=== PATIENT | female | born 1950 | race Caucasian/White ===

== ENCOUNTER 2020-10-17 15:00 | Inpatient (IN) | payer MEDICARE, SELFPAY ==
[2020-10-17] VITALS (12 sets, daily range): BP systolic 111–146; BP diastolic 70–87; PULSE 105–127; RESP 16–18; TEMP 36.4; O2SAT 96–99; BMI 21.2
--- NOTE | ~2020-10-17 | CT_ITS ---
EXAMINATION: CT abdomen pelvis w con DATE: 10/18/2020 09:07 INDICATION: GI bleed TECHNIQUE: Computed tomography (CT) of the abdomen and pelvis was performed with 100 cc Omnipaque 350 intravenous contrast. The dose-length product was 179.67 mGy-cm. Automated exposure control and iter ative reconstruction technique were employed. COMPARISON: None. FINDINGS: There is emphysema in the lung bases. There is scoliosis. Heart size normal. No significant pleural or pericardial effusion. Moderate atherosclerosis of the aorta without aneurysm. No lymphade nopathy. There is a 1 cm liver cyst. The spleen contains calcifications, consistent with chronic granulomatous disease. There are gallstones. There is mild dilation of the common bile duct measuring 1 cm, althou gh no obstructing stone or mass is identified. There is minimal prominence of the pancreatic duct. Th e adrenal glands and kidneys are unremarkable. Nonobstructive bowel gas pattern. Bladder wall is mild ly prominent, although not well distended. No focal bowel abnormalities are identified. No obstructio n. No free air or free fluid. Moderate osteoarthritis of the hips. There is scoliosis. IMPRESSION: 1. Mildly dilated common bile duct measuring 1 cm, although no obstructing stone or mass identified. 2: Cholelithiasis. 3: Emphysema. Reviewed, dictated and finalized at location A. IMPRESSION: 1. Mildly dilated common bile duct measuring 1 cm, although no obstructing ston e or mass identified. 2: Cholelithiasis. 3: Emphysema.
--- NOTE | 2020-10-17 15:03 | ED.GIBLEED ---
HPI - GI Bleed General Chief complaint: GI Bleed Stated complaint: VOMITING BLOOD, DARK STOOLS XTD Time Seen by Provider: 10/17/20 15:03 History of Present Illness HPI Narrative: 69 yo female w/ h/o a-fib on eliquis, PUD presents to the ED for a GI bleed. She reports 2 episodes of bloody emesis starting at about 0600 today. She has also had multiple dark stools. She has felt progressively weak and dizzy as the day goes on. She says that she has had an ulcer in the past, but no problems recently. No h/o GI bleed. No abdominal pain, chest pain, syncope, fever. Related Data Home Medications Medication Instructions Recorded Confirmed alendronate 70 mg PO DAILY 10/17/20 10/17/20 apixaban [Eliquis] 5 mg PO BID 10/17/20 10/17/20 atorvastatin 40 mg PO DAILY 10/17/20 10/17/20 baclofen 10 mg PO HS 10/17/20 10/17/20 citalopram 40 mg PO DAILY 10/17/20 10/17/20 ergocalciferol (vitamin D2) 50,000 unit PO MONTHLY 10/17/20 10/17/20 gabapentin 300 mg PO TID 10/17/20 10/17/20 metoprolol succinate 100 mg PO DAILY 10/17/20 10/17/20 Allergies Allergy/AdvReac Type Severity Reaction Status Date / Time ranitidine Allergy Mild Unknown Verified 10/17/20 18:08 Review of Systems Review of Systems: All systems reviewed & are unremarkable except as noted in HPI and below Constitutional: Constitutional: Denies chills, Denies fever(s) and Reports weakness Eyes: Eyes: Reports no additional eye complaints Cardiovascular: Cardiovascular: Denies chest pain Respiratory: Respiratory: Denies dyspnea Gastrointestinal: Gastrointestinal: Reports as per HPI Genitourinary: Genitourinary: Denies hematuria Musculoskeletal: Musculoskeletal: Denies back pain Neurologic: Reports dizziness and Reports weakness Hematologic/Lymphatic: Hematologic/Lymphatic: Reports easy bleeding PMFSH Past Medical History Medical History (Updated 10/17/20 @ 19:04 by Alon Cole MD) Atrial fibrillation Social History Social History Smoking status: Heavy tobacco smoker Substance use: former Substance use type: does not use Gender identity (if verbalized by the patient): Female Sexual Orientation (if Verbalized by the Patient): Straight or Heterosexual Spiritual care concerns: No Exam Const: General: no acute distress, alert and ill appearing Nutritional Appearance: thin Orientation/consciousness: patient oriented x3 HENMT: Head: normal to inspection Mouth: Yes dry mucous membranes Neck: Neck: normal visual inspection Resp: Effort & Inspection: normal respiratory effort Cardio: Rate: tachycardic Rhythm: regular rhythm GI: GI Palp: Yes Soft to palpation and No Tenderness to palpation present (GI) Skin: General skin exam: pallor Neuro: General: patient oriented x3, moves all extremities, no focal motor deficits and CN's II-XI intact bilaterally Speech: normal speech Gait exam (Neuro): Normal gait present Extrem: General: normal to inspection Psych: Appearance: grossly normal and well kempt Mental Status: mental status grossly normal Affect: normal affect Attitude: cooperative Course Vital Signs Vital signs: Vital Signs Temperature 36.4 C L 10/17/20 15:05 Pulse Rate 116 H 10/17/20 15:05 Respiratory Rate 18 10/17/20 15:05 Blood Pressure 111/72 10/17/20 15:05 Pulse Oximetry 99 10/17/20 15:05 Temperature 36.4 C L 10/17/20 15:05 Pulse Rate 105 H 10/17/20 17:35 Respiratory Rate 18 10/17/20 17:17 Blood Pressure 128/73 10/17/20 17:17 Pulse Oximetry 96 10/17/20 17:45 MDM - GI Bleed MDM Narrative Medical decision making narrative: H/H stable. mildly tachycardic. No indication for emergent reversal of coagulopathy. Given protonix and TXA Dr. Galarza will consult. Differential Diagnosis Differential diagnosis: Likely gastritis, Libra-Hunt syndrome, Upper gastrointestinal hemorrhage and other (PUD) Medical Records Attestation: I reviewed the patient's medical records. Lab Data Attest
[2020-10-17 15:38] LABS: Basophils Percent Auto 0.2 % (0.2-1.2); Eosinophils Percent Auto 0.1 % (0-4.4); Hematocrit 40.7 % (37.0-47.0); Hemoglobin 13.2 g/dL (12.0-15.0); Immature Granulocyte Absolute 0.04 K/mm3 (0.00-0.031); Immature Granulocyte Percent A 0.5 % (0-0.5); Mean Corpuscular HGB Conc 32.4 g/dl (32-36); Mean Corpuscular Volume 98.8 fl (80-100); Mean Platelet Volume 9.6 fl (7.4-10.4); Monocytes Absolute Auto 0.5 K/mm3 (0.1-0.6); Monocytes Percent Auto 5.3 % (2.6-8.5); Neutrophils Absolute Auto 6.8 K/mm3 (1.3-6.7); Neutrophils Percent Auto 76.9 % (45.5-73.1); Platelet Count Result 241 k/mm3 (150-375); Red Blood Count 4.12 M/mm3 (4.2-5.4); Red Cell Distribution Width 12.8 % (11.5-14.5); White Blood Count 8.8 K/mm3 (4.5-10.0)
[2020-10-17] MEDS: PANTOPRAZOLE SODIUM IV 40 MG VIAL 80 MG IV PUSH (15:47)
[2020-10-17] MEDS: SODIUM CHLORIDE 0.9% IV 1,000 ML 999 ML IV CONT (15:47)
[2020-10-17] MEDS: TRANEXAMIC ACID 1,000 MG/10 ML AMPUL 1000 MG IV PUSH (15:47)
[2020-10-17 15:48] LABS: Alanine Aminotransferase 15 U/L (4-35); Albumin Level 4.1 g/dL (3.5-5.1); Alkaline Phosphatase 64 U/L (38-126); Anion Gap 6 mmol/L (8-16); Aspartate Amino Transferase 30 U/L (14-36); Bilirubin,Total 0.7 mg/dL (0.2-1.3); Blood Urea Nitrogen 55 mg/dL (7-17); Calcium 9.4 mg/dL (8.4-10.2); Carbon Dioxide 28 mmol/L (22-30); Chloride 106 mmol/L (98-107); Estimated CRCL calculation 42 ml/min; Estimated Glomerular Filt Rate > 60; Glucose 125 mg/dL (65-105); Potassium 4.7 mmol/L (3.4-5.0); Sodium 140 mmol/L (137-145)
[2020-10-17 15:49] LABS: Partial Thromboplastin Time 26.2 SECONDS (22.3-36.8); Prothrombin Time 13.8 Seconds (11.1-14.7)
--- NOTE | 2020-10-17 17:40 | ADMGEN ---
This patient, Angy Sarmiento, was admitted to 2 Medical Room 249-01. Patient/family oriented to hospital policies and general routines including ID bracelet, bed and alarms, visiting hours, pain management, procedures, bathroom and other care routines, personal items, smoking policy, room service/diet, and visiting hours. Information on how to activate the Rapid Response Team has been discussed. Patient/Family are encouraged to report perceived risks to care and to ask questions if they do not understand what they are told or what they should do.
[2020-10-17] MEDS: LACTATED RINGERS 1,000 ML 75 ML IV CONT (18:17)
[2020-10-17] MEDS: CITALOPRAM HYDROBROMIDE 20 MG TABLET 40 MG PO (20:26)
[2020-10-17] MEDS: BACLOFEN 10 MG TABLET PO (20:26)
[2020-10-17] MEDS: METOPROLOL SUCCINATE EXT REL 100 MG TABCR PO (20:26)
[2020-10-17] MEDS: PANTOPRAZOLE SODIUM IV 40 MG VIAL IV PUSH (20:26)
--- NOTE | 2020-10-17 21:10 | PM.IMHP ---
H&P: HPI History of Present Illness Date/Time: 10/17/20 21:10 this is a 69-year-old female patient with a past medical history of atrial fibrillation. She has been on Eliquis longstanding. The patient stated that she woke up this morning and just did not feel right. Flash and felt nauseated and felt like she was going to pass out. The patient then had a bowel movement which was a dark stool. A right after she had the bowel movement she vomited bright red blood. Then she had multiple dark stools after that. She had a total 2 bright red emesis. She said she felt dizzy and weak. The patient stated that she had a colonoscopy many many years ago and she had some polyps removed but it has been a long time she stated since she had colonoscopy and she told me she has never had an endoscopy performed. Dr. valentine has been consulted for GI. Her Eliquis was placed on hold. Her blood pressure was slightly soft. IV fluids were started. Her H&H was 13.2 40.7 when she came to the emergency room. I have not seen any further dark stools or any further hematemesis. Normal saline and given tranexamic and IV Protonix. The patient is being admitted to inpatient services on the date of service of 10/17/2020. Chief Complaint: Hematemesis Review of Systems Review of Systems: All systems reviewed & are unremarkable except as noted in HPI and below Constitutional: Constitutional: Reports as per HPI and Reports no additional constitutional complaints Eyes: Eyes: Reports as per HPI and Reports no additional eye complaints ENT: Reports system reviewed and no additional complaints, except as documented and Reports Normal hearing present Cardiovascular: Cardiovascular: Reports no additional cardiovascular complaints Respiratory: Respiratory: Reports no additional respiratory complaints and Reports no additional respiratory complaints Gastrointestinal: Gastrointestinal: Reports as per HPI and Reports no additional gastrointestinal complaints Musculoskeletal: Musculoskeletal: Reports no additional musculoskeletal complaints Integumentary/Breasts: Skin/Breast: Reports system reviewed and no additional complaints, except as docu and Reports as per HPI Neurologic: Reports system reviewed and no additional complaints, except as documented, Reports as per HPI and Reports Normal hearing present Psychiatric: Psychiatric: Reports no additional psychiatric complaints and Reports as per HPI Endocrine: Endocrine: Reports no additional endocrine complaints Hematologic/Lymphatic: Hematologic/Lymphatic: Reports no additional hematologic/lymphatic complaints Allergic/Immunologic: Allergic/Immunologic: Reports no additional allergic/immunologic complaints PMFSH Past Medical History Medical History (Updated 10/17/20 @ 21:20 by Dai Menjivar NP) Anxiety and depression Atrial fibrillation Cervicalgia Degenerative disc disease Hyperlipidemia Hypertension Osteoporosis S/P ORIF (open reduction internal fixation) fracture Right leg TGA (transient global amnesia) Surgical History Surgical History (Updated 10/17/20 @ 21:18 by Dai Menjivar NP) H/O colonoscopy with polypectomy H/O: hysterectomy Family History Family History (Updated 10/17/20 @ 21:21 by Dai Menjivar NP) Mother Cancer The patient stated that she heard that her mother from cancer she was not sure of her parents diagnosis as she was in foster care. Social History Social History (Updated 10/17/20 @ 21:22 by Dai Menjivar NP) Social History: The patient still continues to smoke a half a pack a cigarettes a day. She has 2 sons. Her is her durable power sports attorney for healthcare. She desires to be a full code. 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 She denies any alcohol marijuana or illicit drugs. Smoking status: Heavy tobacco smoker Substance use: former Substance use type: does not use Gender identity (if verbalized by the patient): Female Sexu
[2020-10-17 23:58] LABS: Hematocrit 29.8 % (37.0-47.0); Hemoglobin 9.9 g/dL (12.0-15.0)
[2020-10-18] VITALS (9 sets, daily range): BP systolic 108–130; BP diastolic 53–67; PULSE 84–102; RESP 16–20; TEMP 36.4–37.1; O2SAT 93–98
[2020-10-18] MEDS: ALENDRONATE SODIUM 70 MG TABLET PO (05:36)
[2020-10-18 05:47] LABS: Basophils Percent Auto 0.1 % (0.2-1.2); Eosinophils Percent Auto 0.5 % (0-4.4); Immature Granulocyte Absolute 0.03 K/mm3 (0.00-0.031); Immature Granulocyte Percent A 0.4 % (0-0.5); Lymphocytes Absolute Auto 2.65 K/mm3 (0.9-3.2); Mean Corpuscular HGB Conc 32.3 g/dl (32-36); Mean Corpuscular Hemoglobin 31.7 pg (26-34); Mean Corpuscular Volume 98.4 fl (80-100); Mean Platelet Volume 9.9 fl (7.4-10.4); Monocytes Absolute Auto 0.7 K/mm3 (0.1-0.6); Monocytes Percent Auto 8.6 % (2.6-8.5); Neutrophils Absolute Auto 4.4 K/mm3 (1.3-6.7); Neutrophils Percent Auto 56.4 % (45.5-73.1); Platelet Count Result 191 k/mm3 (150-375); Red Blood Count 3.15 M/mm3 (4.2-5.4); Red Cell Distribution Width 12.8 % (11.5-14.5); White Blood Count 7.8 K/mm3 (4.5-10.0)
[2020-10-18 06:31] LABS: Alanine Aminotransferase 11 U/L (4-35); Alkaline Phosphatase 49 U/L (38-126); Anion Gap 0 mmol/L (8-16); Aspartate Amino Transferase 22 U/L (14-36); Bilirubin,Total 0.6 mg/dL (0.2-1.3); Blood Urea Nitrogen 28 mg/dL (7-17); Calcium 8.6 mg/dL (8.4-10.2); Carbon Dioxide 29 mmol/L (22-30); Chloride 110 mmol/L (98-107); Estimated CRCL calculation 42 ml/min; Estimated Glomerular Filt Rate > 60; Glucose 82 mg/dL (65-105); Magnesium 1.6 mg/dL (1.6-2.3); Potassium 3.5 mmol/L (3.4-5.0); Sodium 139 mmol/L (137-145)
[2020-10-18] MEDS: LACTATED RINGERS 1,000 ML 75 ML IV CONT (07:23)
--- NOTE | 2020-10-18 08:58 | PC.NURSE ---
pt to CT via wheelchair
--- NOTE | 2020-10-18 08:59 | PM.CNCAR ---
Assessment and Plan Assessment and plan (1) Hematemesis: Code(s): K92.0 - Hematemesis Status: Acute Assessment and Plan: With likely upper GI bleed, she is on Xarelto, okay to hold it for the time being in view of upper GI bleed and if she gets GI workup until she is stable from GI point of view to be able to restarted, (2) Hypertension: Code(s): I10 - Essential (primary) hypertension Status: Chronic (3) Hyperlipidemia: Code(s): E78.5 - Hyperlipidemia, unspecified Status: Chronic (4) Atrial fibrillation: Code(s): I48.91 - Unspecified atrial fibrillation Status: Chronic Assessment and Plan: He seems to have chronic atrial fibrillation her rate went up slightly as she was throwing up and probably did not get enough of her metoprolol after she took it, will use p.r.n. metoprolol 5 mg as needed until she is able to take her p.o. meds and until her heart rate is well controlled with p.o. metoprolol. Obviously her Xarelto is on hold due to GI bleed. Will get echocardiogram to evaluate current status of left ventricular systolic function look for any other structural heart disease (5) Upper gastrointestinal hemorrhage: Code(s): K92.2 - Gastrointestinal hemorrhage, unspecified Status: Acute (6) History of smoking: Code(s): Z87.891 - Personal history of nicotine dependence Status: Acute Assessment and Plan: Thank you for allowing me to participate in this patient's care, I will be following up with you. Please do not hesitate to call me for any other inquiry History of Present Illness History of Present Illness Consult date/time: 10/18/20 08:59 Chief complaint is dizziness 69 years old lady with history of hypertension, history of atrial fibrillation, which is chronic, came to the hospital because of GI bleed. Woke up yesterday morning with sudden feeling of lightheadedness and dizziness, subsequently had 1 episode of vomiting which was bloody, and had tardy black stool came to the hospital noted to have slight tachycardia atrial fibrillation, she has chronic atrial fibrillation for which she takes metoprolol 100 mg p.o. daily and she takes Xarelto. At with her throwing up her heart rate noted to be elevated with as high as 110. But no palpitation, her symptoms of dizziness improved after she was admitted to the hospital. Currently her Xarelto is on hold due to GI bleed. And her heart rate is 100 now, she feels otherwise okay. No chest pain no shortness of breath no orthopnea no PNDs no leg swelling. She has known atrial fibrillation she sees Dr. Moore at [place] for that Reason For Visit: upper gi bleed Review of Systems Constitutional: Constitutional: Reports as per HPI Cardiovascular: Cardiovascular: Reports as per HPI Gastrointestinal: Gastrointestinal: Reports as per HPI [facility] Past Medical History Medical History Anxiety and depression Atrial fibrillation Cervicalgia Degenerative disc disease Hyperlipidemia Hypertension Osteoporosis S/P ORIF (open reduction internal fixation) fracture Right leg TGA (transient global amnesia) Surgical History Surgical History H/O colonoscopy with polypectomy H/O: hysterectomy Family History Family History Mother Cancer The patient stated that she heard that her mother from cancer she was not sure of her parents diagnosis as she was in foster care. Social History Social History Social History: The patient still continues to smoke a half a pack a cigarettes a day. She has 2 sons. Her is her durable power sports attorney for healthcare. She desires to be a full code. 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 She denies any alcohol marijuana or illicit drugs. Smoking
[2020-10-18] MEDS: ATORVASTATIN 40 MG TABLET PO (09:16)
[2020-10-18] MEDS: CITALOPRAM HYDROBROMIDE 20 MG TABLET 40 MG PO (09:16)
[2020-10-18] MEDS: METOPROLOL SUCCINATE EXT REL 100 MG TABCR PO (09:16)
[2020-10-18] MEDS: GABAPENTIN 300 MG CAPSULE PO ×3 (09:16→17:31)
[2020-10-18] MEDS: PANTOPRAZOLE SODIUM IV 40 MG VIAL IV PUSH ×2 (09:16→20:31)
[2020-10-18 10:43] LABS: Hematocrit 27.7 % (37.0-47.0); Hemoglobin 9.2 g/dL (12.0-15.0)
--- NOTE | 2020-10-18 14:47 | WPDGICN ---
Assessment and Plan Additional Plan GI Consultation Dr. Galarza 18 Oct 2020 This is a 69 year old patient with a history of Afib (on Eliquis and aspirin 81), HTN, HLD, DDD. Osteoporosis, ORIF and hysterectomy who now presents for evaluation of syncope and GI bleed. Patient is seen at the request of the Hospitalist service to evaluate for acute blood loss anemia, hematemesis and melena. The patient?s primary care provider is Dr. Ann Payton. Patient states on 10-17-2020 had nausea and syncope. Patient noted dark stools then had emesis of BRB x 2. She has not had this before. Patient denies abdominal pain, previous nausea or vomiting, trouble swallowing, bloating, loss of appetite or weight, early satiety, heartburn, diarrhea or constipation, previous rectal bleeding or melena. Patient denies fever, jaundice, scleral icterus, dark urine, light stool, itching, hot or cold intolerance, chest pain, shortness of breath at rest, hematuria, dysuria, new cough or visual changes, easy bruising, tingling of the skin, bone pain or tremors. No history of endocarditis, rheumatic fever, dental prophylaxis, heart valve surgery, bleeding disorder or joint replacement. Allergies: ranitidine. Medications: see list but includes aspirin 81 and Eliquis. Social history: + smoker; cessation recommended. Nondrinker. Family history: negative for GI malignancy. Mother had female cancer. Last colonoscopy was at least 10 years ago in [place]; benign. Physical exam: No lower extremity edema, jaundice, spider angioma, palmar erythema. Skull is normocephalic atraumatic. Sclera are non-icteric. Oropharynx is clear. Neck is supple without thyromegaly. Lungs are clear. Heart is rate and rhythm regular. S1 and S2 normal. Normal active bowel sounds. Non-tender, non-rigid, non-distended without hepatosplenomegaly or masses. No guarding. Rectal is deferred. Neuro is conscious and alert ?3. Labs: 10-18-2020 Hct 28. LFT's normal. 10-17-2020 Hct 41, WBC 9, MCV 99. LFT's normal. TSH 1.3 Imaging: CT A/P with IV contrast GS, 1 cm CBD and prominent PD. Assessment and plan: A. Acute blood loss anemia with hematemesis and melena on Eliquis and aspirin: - Concern for UGI source of blood loss including ulcer, M-W tear, neoplasm > AVM - No active bleed currently - Follow H+H; transfuse prn - PPI IV BID - No aspirin, NSAIDS or anticoagulants for now - Appreciate Cardilogy recommendations B. Abnormal imaging-biliary and pancreas: - CT with gallstones, dilated CBD and PD - LFT's normal - No S/sx of gallbladder or pancreas issues - Get MRCP when stable C. Screening for colon cancer: consider colonoscopy when stable, possibly as OP The procedure of upper endoscopy, its indications, alternatives of barium studies and risks including perforation, bleeding, infection, reaction to medication as well as the possible need for blood or surgery were discussed with the patient. Patient voices understanding, agrees to proceed and provides informed consent. Thank you for allowing me to care for your patient. Further recommendations per [facility]. Lee Galarza M.D. (c) [phone] Cc: Dr. Ann Payton; Dr. Leiva GI Consult Note Consult date/time: 10/18/20 14:47 HPI: Angy Sarmiento is a 69 year old female [facility] Past Medical History Medical History Anxiety and depression Atrial fibrillation Cervicalgia Degenerative disc disease Hyperlipidemia Hypertension Osteoporosis S/P ORIF (open reduction internal fixation) fracture Right leg TGA (transient global amnesia) Surgical History Surgical History H/O colonoscopy with polypectomy H/O: hysterectomy Family History Family History Mother Cancer The patient stated that she heard that her mother from cancer she was not sure of her parents diagnosis as
--- NOTE | 2020-10-18 18:16 | PM.IMPN ---
Progress Note: A&P Assessment and Plan (1) Hematemesis: Code(s): K92.0 - Hematemesis Status: Acute (2) Anxiety and depression: Code(s): F41.9 - Anxiety disorder, unspecified; F32.9 - Major depressive disorder, single episode, unspecified Status: Chronic Assessment and Plan: Continue with patient's a trial a Bibi (3) Hypertension: Code(s): I10 - Essential (primary) hypertension Status: Chronic Assessment and Plan: Continue with metoprolol (4) Degenerative disc disease: Status: Chronic Assessment and Plan: Continue with baclofen and gabapentin (5) Hyperlipidemia: Code(s): E78.5 - Hyperlipidemia, unspecified Status: Chronic Assessment and Plan: Who continue with atorvastatin (6) Osteoporosis: Code(s): M81.0 - Age-related osteoporosis without current pathological fracture Status: Chronic Assessment and Plan: Continue with Fosamax weekly. (7) Atrial fibrillation: Code(s): I48.91 - Unspecified atrial fibrillation Status: Chronic Assessment and Plan: Her Eliquis is on hold and will continue with metoprolol. Additional Plan 10/17/2020 The patient was given tranexamic acid per ED provider. Her Eliquis is on hold at this time. GI has been consulted. IV fluids have been started. I did order a CT of the abdomen for in the morning. Patient stated that she has had a colonoscopy with a polypectomy the past but states that she has not had an endoscopy. Continue with IV Protonix. Further recommendation per GI. Will continue to monitor her H&H every 6 hours. 10/18/2020 Patient admitted for ablative with hematemesis and melena. She has been on Eliquis for atrial fibrillation. This was stopped at the time of admission. Hemoglobin trends have been stable and patient denies any ongoing bleeding. GI consult placed at the time of admission. Continue to trend hemoglobin, continue PPI b.i.d. high dose, avoid agents 2nd resulted in ongoing bleeding worsening bleeding, will need EGD tomorrow and likely ongoing outpatient workup after discharge. Subjective Date/time seen: 10/18/20 09:16 Patient doing well, stable. Has no complaints of time my interview. She denies any ongoing bleeding or black stools to her knowledge. She denies abdominal pain nausea vomiting. Pending GI eval Exam Narrative: Exam Narrative: GEN: NAD, cooperative HEENT: NCAT, MMM, EOMI Neck: no JVD Heart: S1S2 RRR Lungs: CTA B/l Abd: soft, NT, ND, bowel sounds normoactive Ext: moves all, no cyanosis, no clubbing, no edema Neuro: No focal neurological deficits, A&O x3, cranial nerves intact Psych: Mood and affect congruent Objective Data Vital Signs Vital Signs: Vital Signs - 24 hr 10/17/20 20:00 10/17/20 20:26 10/17/20 21:28 Temperature 97.6 F Pulse Rate 125 H 123 H 116 H Respiratory Rate 16 Blood Pressure 135/78 Pulse Oximetry 98 10/18/20 00:00 10/18/20 04:00 10/18/20 06:00 Temperature 97.6 F Pulse Rate 98 90 96 Respiratory Rate 16 Blood Pressure 130/67 Pulse Oximetry 98 10/18/20 08:00 10/18/20 09:16 10/18/20 12:00 Temperature Pulse Rate 102 H 96 92 Respiratory Rate Blood Pressure Pulse Oximetry 10/18/20 14:00 10/18/20 16:00 Temperature 98.7 F Pulse Rate 94 84 Respiratory Rate 16 Blood Pressure 108/64 Pulse Oximetry 97 Intake/Output Intake/Output: Intake & Output 10/15/20 10/16/20 10/17/20 10/18/20 23:59 23:59 23:59 23:59 Intake Total 1000 1840 Output Total 2650 Balance 1000 -810 Meds/Results Medications: Active Medications Generic Name Dose Route Start Last Admin Trade Name Brandy PRN Reason Stop Dose Admin Alendronate Sodium 70 mg 10/18/20 06:30 10/18/20 05:36 Alendronate Sodium 70 Mg Tablet PO 70 mg [id number] RAMONE Administration Atorvastatin Calcium 40 mg 10/18/20 09:00 10/18/20 09:16 Atorvastatin 40 Mg Tablet PO 40 mg DAILY
[2020-10-18] MEDS: BACLOFEN 10 MG TABLET PO (20:31)
[2020-10-19] VITALS (12 sets, daily range): BP systolic 112–136; BP diastolic 52–77; PULSE 53–113; RESP 16–25; TEMP 36.2–36.4; O2SAT 92–100
--- NOTE | 2020-10-19 | ECHO_ITS ---
Patient Info Name: Angy Sarmiento Age: 69 years : 1950 Gender: Female Ht: 61 in Wt: 112 lbs BSA: 1.48 m2 HR: 53 bpm BP: 136 / 53 mmHg Technical Quality: Good Exam Date: 10/19/2020 10:40 AM Exam Location: [facility] Pulmonary Exam Room: [facility] Patient Status: Inpatient Admit Date: 10/17/2020 Staff Ordering Physician: Pierce Rick MD Nonprofit Fundraiser: Hannah Schneider RDCS Attending Provider: Amada Gordon MD Exam Type: CA echo doppler color flow Study Info Indications - afib Complete two-dimensional, color flow and Doppler transthoracic echocardiogram is performed. Summary 1. Complete two-dimensional, color flow and Doppler transthoracic echocardiogram is performed. 2. Left ventricular systolic function is normal, estimated at 55-60%. 3. Left atrial chamber dimension is moderately enlarged. 4. Right atrial chamber dimension is mildly enlarged. 5. There is mild tricuspid valve regurgitation. 6. Mild pulmonary hypertension, estimated pulmonary arterial systolic pressure is 42 mmHg. 7. There is mild aortic valve regurgitation. Left Ventricle Left ventricular chamber dimension is normal. Left ventricular systolic function is normal, estimated at 55-60%. There is no increased left ventricular wall thickness. Left ventricular septal wall motion is normal. The left ventricular diastolic function is normal. Right Ventricle Right ventricular chamber dimension is normal. Right ventricular systolic function is normal. Left Atria Left atrial chamber dimension is moderately enlarged. Right Atria Right atrial chamber dimension is mildly enlarged. Aortic Valve The aortic valve is trileaflet. There is no aortic valve sclerosis. There is no aortic valve stenosis. There is mild aortic valve regurgitation. Pulmonic Valve The pulmonic valve is normal. There is no pulmonic valve stenosis. There is no pulmonic regurgitation. Mitral Valve The mitral valve has normal leaflets. There is no mitral valve stenosis. There is mild mitral valve regurgitation. Tricuspid Valve The tricuspid valve leaflets are normal. There is no significant tricuspid valve stenosis. There is mild tricuspid valve regurgitation. Mild pulmonary hypertension, estimated pulmonary arterial systolic pressure is 42 mmHg. Pericardium/Pleural The pericardium appears normal. There is no pericardial effusion. Inferior Vena Cava Normal inferior vena cava with >50% collapse upon inspiration consistent with normal right atrial pressure, 10 mmHg. Aorta The aortic root size at the sinus of Valsalva is normal. The prox ascending aorta size is normal. Left Ventricular Outflow Tract Name Value Normal LVOT 2D LVOT Diameter 2.0 cm LVOT Doppler LVOT Peak Gradient 4 mmHg LVOT Mean Gradient 2 mmHg LVOT VTI 17 cm LVOT VTI/AV VTI Ratio 0.7 LVOT Stroke Volume 52 ml LVOT CO 12.6 l/min LVOT CI 8.5 l/mi
[2020-10-19 05:46] LABS: Basophils Percent Auto 0.5 % (0.2-1.2); Eosinophils Absolute Auto 0.1 K/mm3 (0-0.3); Eosinophils Percent Auto 1.1 % (0-4.4); Hematocrit 33.6 % (37.0-47.0); Hemoglobin 10.7 g/dL (12.0-15.0); Immature Granulocyte Absolute 0.02 K/mm3 (0.00-0.031); Immature Granulocyte Percent A 0.3 % (0-0.5); Lymphocytes Absolute Auto 2.59 K/mm3 (0.9-3.2); Lymphocytes Percent Auto 39.8 % (18.3-44.2); Mean Corpuscular HGB Conc 31.8 g/dl (32-36); Mean Corpuscular Hemoglobin 31.1 pg (26-34); Mean Corpuscular Volume 97.7 fl (80-100); Mean Platelet Volume 9.5 fl (7.4-10.4); Monocytes Absolute Auto 0.5 K/mm3 (0.1-0.6); Monocytes Percent Auto 7.8 % (2.6-8.5); Neutrophils Absolute Auto 3.3 K/mm3 (1.3-6.7); Neutrophils Percent Auto 50.5 % (45.5-73.1); Platelet Count Result 221 k/mm3 (150-375); Red Blood Count 3.44 M/mm3 (4.2-5.4); Red Cell Distribution Width 12.7 % (11.5-14.5); White Blood Count 6.5 K/mm3 (4.5-10.0)
[2020-10-19 05:50] LABS: Prothrombin Time 13.8 Seconds (11.1-14.7)
[2020-10-19 05:58] LABS: Alanine Aminotransferase 12 U/L (4-35); Albumin Level 3.5 g/dL (3.5-5.1); Alkaline Phosphatase 54 U/L (38-126); Anion Gap 3 mmol/L (8-16); Aspartate Amino Transferase 25 U/L (14-36); Bilirubin,Total 0.5 mg/dL (0.2-1.3); Blood Urea Nitrogen 14 mg/dL (7-17); Calcium 8.8 mg/dL (8.4-10.2); Carbon Dioxide 29 mmol/L (22-30); Chloride 108 mmol/L (98-107); Estimated CRCL calculation 42 ml/min; Estimated Glomerular Filt Rate > 60; Glucose 97 mg/dL (65-105); Magnesium 1.6 mg/dL (1.6-2.3); Potassium 3.8 mmol/L (3.4-5.0); Sodium 140 mmol/L (137-145)
[2020-10-19] MEDS: GABAPENTIN 300 MG CAPSULE PO ×2 (08:23→14:11)
[2020-10-19] MEDS: CITALOPRAM HYDROBROMIDE 20 MG TABLET 40 MG PO (08:23)
[2020-10-19] MEDS: ATORVASTATIN 40 MG TABLET PO (08:23)
[2020-10-19] MEDS: METOPROLOL SUCCINATE EXT REL 100 MG TABCR PO (08:23)
[2020-10-19] MEDS: PANTOPRAZOLE SODIUM IV 40 MG VIAL IV PUSH (08:24)
[2020-10-19] MEDS: LACTATED RINGERS 1,000 ML 75 ML IV CONT (08:24)
--- NOTE | 2020-10-19 12:41 | PM.IMPN ---
Progress Note: A&P Assessment and Plan (1) Hematemesis: Code(s): K92.0 - Hematemesis Status: Acute Assessment and Plan: Patient reported an episode of bloody vomiting prior to arrival No acute problem Will consider Zofran if needed PRN (2) Anxiety and depression: Code(s): F41.9 - Anxiety disorder, unspecified; F32.9 - Major depressive disorder, single episode, unspecified Status: Chronic Assessment and Plan: Continue citalopram Monitor for mood shifts Explain plan of care to patient and upcoming plans (3) Hypertension: Code(s): I10 - Essential (primary) hypertension Status: Chronic Assessment and Plan: Blood pressure is 126/77. Well controlled by home medications Continue with metoprolol (4) Degenerative disc disease: Status: Chronic Assessment and Plan: No acute pain Trend pain scores Early mobility Continue with baclofen and gabapentin (5) Hyperlipidemia: Code(s): E78.5 - Hyperlipidemia, unspecified Status: Chronic Assessment and Plan: continue with atorvastatin (6) Osteoporosis: Code(s): M81.0 - Age-related osteoporosis without current pathological fracture Status: Chronic Assessment and Plan: Continue home Fosamax weekly. (7) Atrial fibrillation: Code(s): I48.91 - Unspecified atrial fibrillation Status: Chronic Assessment and Plan: Patient is controlled A.FIb Eliquis is on hold due to possible bleed. 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 Dr. Galarza was consult is going to do EGD today to evaluate for a bleed. Patient denies shortness of breath chest pain, nausea, vomiting, abdominal pain, weakness fatigue, numbness and tingling, or diarrhea or constipation.. Patient did say she had a headache however she also admitted to being a smoker and she has coffee in the morning. Did educate patient about being a smoker and how important it is to quit. All questions were answered patient verbalized understanding. Patient did ask if she could go home after EGD and said that she is ready will follow-up with Dr. marianne gerber about possible discharge this afternoon. Review of Systems Review of Systems: All systems reviewed & are unremarkable except as noted in HPI and below Exam Const: General: cooperative, healthy appearing, comfortable, well developed, alert, awake, Physically active and well groomed Nutritional Appearance: thin Orientation/consciousness: patient oriented x3 Limitations: no limitations HENMT: Ears: TM's normal bilaterally Eyes: General: appearance normal, both eyes and all related structures Neck: Neck: normal visual inspection, full ROM and no JVD Thyroid: thyroid normal Carotids: normal carotid upstroke Lymphatic: no lymphadenopathy noted Resp: Effort & Inspection: normal respiratory effort and able to speak in complete sentences Auscultation: clear to auscultation bilaterally Cardio: Jugular venous distension: no JVD Rate: regular rate Rhythm: abnormal rhythm Heart sounds: S1 normal heart sound present and S2 normal heart sound present Peripheral pulses: Peripheral pulses 2+ throughout GI: Inspection: normal to inspection GI Palp: Yes abdominal tenderness and Yes Soft to palpation Auscultation: normal bowel sounds Rectal Exam: deferred : General: Yes no CVA tenderness Skin: General skin exam: normal color and no rashes or lesions noted Lesions: no lesions Rashes: no rashes Trauma: no lacerations or abrasions Wounds: no wounds Hair: normal
--- NOTE | 2020-10-19 12:44 | WPDANESEPPF ---
Anes - Initial Pre Proc Eval Procedure: Operation Date: 10/19/20 14:15 Proposed Procedures p Esophagogastroduodenoscopy - Humble Bah MD Date/Time: 10/19/20 12:44 Surgeon: Amada Gordon MD Pre Op Diagnosis: upper gi bleed Patient Data Age: 69 Gender: F Height: 5 ft 1 in Weight: 51 kg Last Vital Signs Temp 97.5 F L 10/19/20 10:00 Pulse 81 10/19/20 10:00 Resp 16 10/19/20 10:00 BP 115/52 L 10/19/20 10:00 Pulse Ox 97 10/19/20 10:00 Allergies Allergy/AdvReac Type Severity Reaction Status Date / Time ranitidine Allergy Mild Unknown Verified 10/19/20 12:43 Home Medications Medication Instructions Recorded Confirmed Type alendronate 70 mg PO DAILY 10/17/20 10/17/20 History apixaban [Eliquis] 5 mg PO BID 10/17/20 10/17/20 History atorvastatin 40 mg PO DAILY 10/17/20 10/17/20 History baclofen 10 mg PO HS 10/17/20 10/17/20 History citalopram 40 mg PO DAILY 10/17/20 10/17/20 History ergocalciferol (vitamin D2) 50,000 unit PO MONTHLY 10/17/20 10/17/20 History gabapentin 300 mg PO TID 10/17/20 10/17/20 History metoprolol succinate 100 mg PO DAILY 10/17/20 10/17/20 History Laboratory Tests 10/19/20 10/19/20 10/19/20 05:22 05:22 05:22 WBC 6.5 K/mm3 K/mm3 (4.5-10.0) RBC 3.44 M/mm3 L M/mm3 (4.2-5.4) Hgb 10.7 g/dL L g/dL (12.0-15.0) Hct 33.6 % L % (37.0-47.0) MCV 97.7 fl fl (80-100) MCH 31.1 pg pg (26-34) MCHC 31.8 g/dl L g/dl (32-36) RDW 12.7 % % (11.5-14.5) Plt Count 221 k/mm3 k/mm3 (150-375) MPV 9.5 fl fl (7.4-10.4) Immature Gran % (Auto) 0.3 % % (0-0.5) Neut % (Auto) 50.5 % % (45.5-73.1) Lymph % (Auto) 39.8 % % (18.3-44.2) [place] % (Auto) 7.8 % % (2.6-8.5) Eos % (Auto) 1.1 % % (0-4.4) Baso % (Auto) 0.5 % % (0.2-1.2) Lymph # (Auto) 2.59 K/mm3 K/mm3 (0.9-3.2) [place] # (Auto) 0.5 K/mm3 K/mm3 (0.1-0.6) Eos # (Auto) 0.1 K/mm3 K/mm3 (0-0.3) Baso # (Auto) 0.0 K/mm3 K/mm3 (0.0-0.1) Abs Immat Gran (auto) 0.02 K/mm3 K/mm3 (0.00-0.031) Absolute Neuts (auto) 3.3 K/mm3 K/mm3 (1.3-6.7) Absolute Nucleated RBC 0.0 K/mm3 K/mm3 (0.0-0.012) Nucleated RBC % 0.0 % % (0.0-0.2) PT 13.8 Seconds Seconds (11.1-14.7) INR 1.0 APTT 28.0 SECONDS SECONDS (22.3-36.8) Sodium 140 mmol/L mmol/L (137-145) Potassium 3.8 mmol/L mmol/L (3.4-5.0) Chloride 108 mmol/L H mmol/L (98-107) Carbon Dioxide 29 mmol/L mmol/L (22-30) Anion Gap 3 mmol/L L mmol/L (8-16) BUN 14 mg/dL D mg/dL (7-17) Creatinine 0.80 mg/dL mg/dL (0.7-1.0) Estim Creat Clear Calc 42 ml/min ml/min Estimated GFR > 60 (59 - ) Glucose 97 mg/dL mg/dL (65-105) Calcium 8.8 mg/dL mg/dL (8.4-10.2) Magnesium 1.6 mg/dL mg/dL (1.6-2.3) Total Bilirubin 0.5 mg/dL mg/dL (0.2-1.3) AST 25 U/L U/L (14-36) ALT 12 U/L U/L (4-35) Alkaline Phosphatase 54 U/L U/L (38-126) Total Protein 6.0 g/dL L g/dL (6.3-8.2) Albumin 3.5 g/dL g/dL (3.5-5.1) Patient hx anesthesia problems: none Family hx anesthesia problems: none PMFSH Past Medical History Medical History Anxiety and depression Atrial fibrillation Cervicalgia Degenerative disc disease Hyperlipidemia Hypertension Osteoporosis S/P ORIF (open reduction internal fixation) fracture Right leg TGA (transient global amnesia) Surgical History Surgical History H/O colonoscopy with polypectomy H/O: hysterectomy Family History Family History (Reviewed 10/18/20 @ 09:01 by Peirce Taylor
[2020-10-19] MEDS: LACTATED RINGERS 1,000 ML 150 ML IV CONT (12:55)
--- NOTE | 2020-10-19 13:38 | PC.NURSE ---
10/19/20 1230 Pt to GI lab per wheelchair.
--- NOTE | 2020-10-19 14:12 | PC.NURSE ---
Pt returned from GI lab per travon.
--- NOTE | 2020-10-19 15:01 | P.DS_ITS ---
DS: Admitting Diagnosis Admitting Diagnosis Admitting Diagnosis: Gastric Ulcer DS: Discharge Diagnosis Discharge Diagnosis (1) Gastric ulcer with hemorrhage: Code(s): K25.4 - Chronic or unspecified gastric ulcer with hemorrhage Status: Acute Assessment and Plan: * EDG-gastric ulcer in the stomach * No bleeding noted * H.Pylori pending * EGD in 3 months * Follow up with GI * Protonix 40mg BID * Hold Eliquis for 10 days (2) Hematemesis: Code(s): K92.0 - Hematemesis Status: Acute Assessment and Plan: * Patient reported an episode of bloody vomiting prior to arrival * No acute problem * Will consider Zofran if needed PRN (3) Anxiety and depression: Code(s): F41.9 - Anxiety disorder, unspecified; F32.9 - Major depressive disorder, single episode, unspecified Status: Chronic Assessment and Plan: * Continue citalopram * Monitor for mood shifts * Explain plan of care to patient and upcoming plans (4) Hypertension: Code(s): I10 - Essential (primary) hypertension Status: Chronic Assessment and Plan: * Blood pressure is 126/77. * Well controlled by home medications * Continue with metoprolol (5) Degenerative disc disease: Status: Chronic Assessment and Plan: * No acute pain * Trend pain scores * Early mobility * Continue with baclofen and gabapentin (6) Hyperlipidemia: Code(s): E78.5 - Hyperlipidemia, unspecified Status: Chronic Assessment and Plan: * continue with atorvastatin (7) Osteoporosis: Code(s): M81.0 - Age-related osteoporosis without current pathological fracture Status: Chronic Assessment and Plan: * Continue home Fosamax weekly. (8) Atrial fibrillation: Code(s): I48.91 - Unspecified atrial fibrillation Status: Chronic Assessment and Plan: * Patient is controlled A.FIb * Eliquis is on hold due to possible bleed. * continue with metoprolol. 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 Dr. Call did an EGD today to evaluate for a bleed. If no bleed was found through the EGD. Patient was brought back to the floor. If patient can tolerate diet Dr. Call is okay with patient going home. Patient denies shortness of breath chest pain, nausea, vomiting, abdominal pain, weakness fatigue, numbness and tingling, or diarrhea or constipation.. Patient did say she had a headache however she also admitted to being a smoker and she has coffee in the morning. Did educate patient about being a smoker and how important it is to quit. All questions were answered patient verbalized u nderstanding. Follow-up Dr. Hector he is okay with patient going home and following up with cardiology in 10 days. Talked to patient told her about instructions she verbalizes understanding all questions were answered once again encouraged smoking cessation Time spent discussing smoking cessation with patient: more than 10 minutes Status at Discharge Functional status at discharge: independent ambulation Overall status at d
--- NOTE | 2020-10-19 15:01 | PM.DS ---
DS: Admitting Diagnosis Admitting Diagnosis Admitting Diagnosis: Gastric Ulcer DS: Discharge Diagnosis Discharge Diagnosis (1) Gastric ulcer with hemorrhage: Code(s): K25.4 - Chronic or unspecified gastric ulcer with hemorrhage Status: Acute Assessment and Plan: EDG-gastric ulcer in the stomach No bleeding noted H.Pylori pending EGD in 3 months Follow up with GI Protonix 40mg BID Hold Eliquis for 10 days (2) Hematemesis: Code(s): K92.0 - Hematemesis Status: Acute Assessment and Plan: Patient reported an episode of bloody vomiting prior to arrival No acute problem Will consider Zofran if needed PRN (3) Anxiety and depression: Code(s): F41.9 - Anxiety disorder, unspecified; F32.9 - Major depressive disorder, single episode, unspecified Status: Chronic Assessment and Plan: Continue citalopram Monitor for mood shifts Explain plan of care to patient and upcoming plans (4) Hypertension: Code(s): I10 - Essential (primary) hypertension Status: Chronic Assessment and Plan: Blood pressure is 126/77. Well controlled by home medications Continue with metoprolol (5) Degenerative disc disease: Status: Chronic Assessment and Plan: No acute pain Trend pain scores Early mobility Continue with baclofen and gabapentin (6) Hyperlipidemia: Code(s): E78.5 - Hyperlipidemia, unspecified Status: Chronic Assessment and Plan: continue with atorvastatin (7) Osteoporosis: Code(s): M81.0 - Age-related osteoporosis without current pathological fracture Status: Chronic Assessment and Plan: Continue home Fosamax weekly. (8) Atrial fibrillation: Code(s): I48.91 - Unspecified atrial fibrillation Status: Chronic Assessment and Plan: Patient is controlled A.FIb Eliquis is on hold due to possible bleed. 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 Dr. Call did an EGD today to evaluate for a bleed. If no bleed was found through the EGD. Patient was brought back to the floor. If patient can tolerate diet Dr. Call is okay with patient going home. Patient denies shortness of breath chest pain, nausea, vomiting, abdominal pain, weakness fatigue, numbness and tingling, or diarrhea or constipation.. Patient did say she had a headache however she also admitted to being a smoker and she has coffee in the morning. Did educate patient about being a smoker and how important it is to quit. All questions were answered patient verbalized understanding. Follow-up Dr. Hector he is okay with patient going home and following up with cardiology in 10 days. Talked to patient told her about instructions she verbalizes understanding all questions were answered once again encouraged smoking cessation Time spent discussing smoking cessation with patient: more than 10 minutes Status at Discharge Functional status at discharge: independent ambulation Overall status at discharge: patient is back to baseline Time Spent with Patient Time attestation: Total time spent providing and/or coordinating discharge services:35 minutes Time spent: Greater than 30 minutes Exam Const: General: cooperative, healthy appearing, comfortable, no acute distress, well developed, alert, awake, Physically active and well groomed Nutritional Appearance: average body habitus, well nourished and thin Orientation/consciousness: oriented to person, oriented to place, oriented to time and patient oriented x3 Limitat
--- NOTE | 2020-10-19 15:12 | PM.PNCARD ---
Progress Note: A&P Assessment and Plan (1) Hematemesis: Code(s): K92.0 - Hematemesis Status: Acute Assessment and Plan: EGD showed large ulcer, she can be treated with medications, and we would hold Xarelto for 10 days (2) Hypertension: Code(s): I10 - Essential (primary) hypertension Status: Chronic (3) Hyperlipidemia: Code(s): E78.5 - Hyperlipidemia, unspecified Status: Chronic (4) Atrial fibrillation: Code(s): I48.91 - Unspecified atrial fibrillation Status: Chronic Assessment and Plan: He seems to have chronic atrial fibrillation her rate went up slightly as she was throwing up and probably did not get enough of her metoprolol after she took it, will use p.r.n. metoprolol 5 mg as needed until she is able to take her p.o. meds and until her heart rate is well controlled with p.o. metoprolol. Obviously her Xarelto is on hold due to GI bleed. 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 On the monitor she has atrial fibrillation, but rate is well controlled. Echocardiogram showed normal left ventricular systolic function Exam Narrative: Exam Narrative: Awake alert oriented x3 not in acute distress Neck is supple no obvious JVD, no carotid bruit Chest: Good air entry bilaterally, lungs are clear to auscultation and percussion bilaterally Cardiovascular: Irregularly irregular rate and rhythm, 2/6 systolic murmur noted left sternal border Abdomen: Soft nontender bowel sounds positive Extremities: No edema has good pulses distally bilaterally Objective Data Vital Signs Vital Signs: Vital Signs - 24 hr 10/18/20 16:00 10/18/20 20:00 10/19/20 00:00 Temperature 36.4 C L Pulse Rate 84 86 85 Respiratory Rate 20 Blood Pressure 109/53 L Pulse Oximetry 93 10/19/20 04:00 10/19/20 05:00 10/19/20 08:00 Temperature 36.4 C Pulse Rate 98 53 L 94 Respiratory Rate 18 Blood Pressure 136/53 L Pulse Oximetry 96 10/19/20 08:23 10/19/20 10:00 10/19/20 12:00 Temperature 36.4 C L Pulse Rate 92 81 89 Respiratory Rate 16 Blood Pressure 115/52 L Pulse Oximetry 97 10/19/20 12:49 10/19/20 13:37 10/19/20 13:49 Temperature 36.2 C L Pulse Rate 87 113 H 83 Respiratory Rate 20 25 H 22 H Blood Pressure 126/77 124/69 112/65 Pulse Oximetry 99 96 100 10/19/20 14:00 Temperature 36.4 C Pulse Rate 54 L Respiratory Rate 16 Blood Pressure 121/76 Pulse Oximetry 92 Intake/Output Intake/Output: Intake & Output 10/16/20 10/17/20 10/18/20 10/19/20 23:59 23:59 23:59 23:59 Intake Total 1000 3160 100 Output Total 2650 Balance 1000 510 100 Meds/Results Medications: Active Medications Generic Name Dose Route Start Last Admin Trade Name Freq PRN Reason Stop Dose Admin Alendronate Sodium 70 mg 10/18/20 06:30 10/18/20 05:36 Alendronate Sodium 70 Mg Tablet PO 70 mg [id number] RAMONE Administration Atorvastatin Calcium 40 mg 10/18/20 09:00 10/19/20 08:23 Atorvastatin 40 Mg Tablet PO 40 mg DAILY RAMONE Administration Baclofen 10 mg 10/17/20 21:00 10/18/20 20:31 Baclofen 10 Mg Tablet PO 10 mg HS RAMONE Administration Citalopram Hydrobromide 40 mg 10/17/20 19:50 10/19/20 08:23 Citalopram Hydrobromide 20 Mg Tablet PO 40 mg DAILY RAMONE Administration Ergocalciferol
== END 2020-10-19 16:34 | disposition home or self-care (01) | DRG 378 ==
LOC: ANHED 16:32 → ANH2MED 18:21
PROVIDERS: Internal Medicine Gastroenterology; Nurse Practitioner; Admitting Provider Hospitalist; Emergency Provider Emergency Medicine; PCP Internal Medicine; Visit Provider Nurse Practitioner
PROC: 0DJ08ZZ Inspection of Upper Intestinal Tract, Via Natural or Artificial Opening Endoscopic (ICD-10-PCS; CPT 43235; principal; 2020-10-19 14:15)
DX: K25.4 Chronic or unspecified gastric ulcer with hemorrhage (principal); D62 Acute posthemorrhagic anemia; E78.5 Hyperlipidemia, unspecified; F41.9 Anxiety disorder, unspecified; F32.9 Major depressive disorder, single episode, unspecified; I48.91 Unspecified atrial fibrillation; M81.0 Age-related osteoporosis without current pathological fracture; Z87.891 Personal history of nicotine dependence
CPT/HCPCS: 36415; 74177; 80053; 83735; 84443; 85014; 85018; 85025; 85610; 85730; 86850; 86900; 86901; 87081; 88305; 88342; 93306; 96374; 96375; 99285; A9270; C9113; J7030; J7120; Q9967

== ENCOUNTER 2020-10-21 10:46 | Outpatient (CLI) | payer MEDICARE, SELFPAY ==
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
== END 2020-10-21 10:47 | disposition home or self-care (01) ==
LOC: CHSIMG 10:49
PROVIDERS: PCP Internal Medicine; Visit Provider Internal Medicine
DX: M54.2 Cervicalgia (principal)
CPT/HCPCS: 72040

== ENCOUNTER 2021-06-16 07:43 | Outpatient (CLI) | payer MEDICARE, SELFPAY ==
--- NOTE | ~2021-06-16 | CT_ITS ---
EXAMINATION: CT lung screening DATE: 06/16/2021 07:58 INDICATION: Personal history of tobacco dependence SMOKER SCREENING,CHRONIC COUGH TECHNIQUE: Computed tomography (CT) of the chest was performed without intravenous contrast. Addition al 3D reconstructions utilizing coronal maximum intensity projection (MIP) were performed. Automated exposure control and iterative reconstruction technique were employed. The dose-length product was 55 .58 mGy-cm. COMPARISON: 02/06/2018 FINDINGS: Severe emphysema. Relatively stable appearance of mild biapical pleural-parenchymal scarring includin g a few more nodular and nodular groundglass opacities measuring up to 1 cm at the right apex. 7 mm s ubpleural nodule slightly more caudally in the right upper lobe which measured 8 mm at the time of th e prior study. Additional mild pleural parenchymal scarring at the bilateral lung bases. Unchanged 5 mm flat triangular intrafissural lymph node along the right minor fissure. No pulmonary edema, pneumo ron, pleural effusion or pneumothorax. Heart size is normal. Small amount of atherosclerotic coronary artery calcification. No pericardial effusion. Thoracic aorta is normal in caliber. No pathologicall y enlarged thoracic lymphadenopathy. 1 cm low-attenuation cyst at the upper pole of the left kidney. There is also a 1 cm low-attenuation hepatic cyst. Severe lower cervical spondylosis. Mild thoracic k yphosis with mild to moderate thoracic spondylosis. Old healed sternal fracture. IMPRESSION: 1. Lung-RADS category 2: Benign appearance or behavior. Continue annual screening with noncontrast lo w-dose chest CT in 12 months. Reviewed, dictated and finalized at [facility]. TATISTICS DIRECTOR IMPRESSION: 1. Lung-RADS category 2: Benign appearance or behavior. Continue annual screeni ng with noncontrast low-dose chest CT in 12 months.
== END 2021-06-16 07:44 | disposition home or self-care (01) ==
LOC: CHSIMG 07:44
PROVIDERS: PCP Internal Medicine; Visit Provider Internal Medicine
DX: Z12.2 Encounter for screening for malignant neoplasm of respiratory organs (principal); Z87.891 Personal history of nicotine dependence
CPT/HCPCS: 71271

== ENCOUNTER 2021-11-15 14:05 | Outpatient (CLI) | payer MEDICARE, SELFPAY ==
--- NOTE | ~2021-11-15 | XR_ITS ---
XR chest 2V DATE: 11/15/2021 15:01 INDICATION: Shortness of breath. Influenza. TECHNIQUE: PA and lateral views COMPARISON: 06/16/2021 CT lung screening 05/10/2017 two-view chest FINDINGS: Bilateral hyperinflation and relative flattening the diaphragm and increased retrosternal a irspace, consistent with COPD. Mild bilateral apical scarring. No pulmonary infiltrate or consolidation, pleural effusion or pulmonary vascular congestion or pneumo thorax is detected. Cardiomegaly. Aortic calcification. No hilar or mediastinal enlargement. Diffuse osteopenia. Dextroscoliosis of the thoracolumbar spine. IMPRESSION: COPD Cardiomegaly Aortic atherosclerosis No active pulmonary disease Reviewed, dictated and finalized at [facility].
[2021-11-15 14:50] LABS: Basophils Absolute Auto 0.01 K/mm3 (0.00-0.10); Basophils Percent Auto 0.1 % (0.0-1.0); Eosinophils Absolute Auto 0.04 K/mm3 (0.02-0.50); Eosinophils Percent Auto 0.5 % (1.0-6.0); Hematocrit 38.4 % (35.0-42.0); Immature Granulocyte Absolute 0.03 K/mm3 (0.00-0.00); Immature Granulocyte Percent A 0.3 % (0.0-0.0); Lymphocytes Absolute Auto 1.45 K/mm3 (1.10-4.50); Lymphocytes Percent Auto 16.4 % (18.0-42.0); Mean Corpuscular HGB Conc 31.3 g/dL (32.0-36.0); Mean Corpuscular Hemoglobin 30.5 pg (27.0-31.0); Mean Corpuscular Volume 97.5 fL (78.0-102.0); Mean Platelet Volume 9.5 fl (9.2-11.8); Monocytes Absolute Auto 0.72 K/mm3 (0.10-0.90); Monocytes Percent Auto 8.1 % (2.0-11.0); Neutrophils Absolute Auto 6.6 K/mm3 (1.7-7.2); Neutrophils Percent Auto 74.6 % (50.0-70.0); Platelet Count Result 238 K/mm3 (150-420); Red Blood Count 3.94 M/mm3 (4.20-5.40); Red Cell Distribution Width 13.1 % (11.6-14.4); White Blood Count 8.8 K/mm3 (4.8-10.8)
[2021-11-15 15:23] LABS: Alanine Aminotransferase 17 U/L (14-59); Albumin Level 3.3 g/dL (3.4-5.0); Alkaline Phosphatase 92 U/L (46-116); Anion Gap 7 mmol/L (8-16); Aspartate Amino Transferase 19 U/L (15-37); Bilirubin,Total 0.6 mg/dL (0.00-1.00); Blood Urea Nitrogen 15 mg/dL (7-18); Carbon Dioxide 30 mmol/L (21-32); Chloride 101 mmol/L (98-108); Estimated Glomerular Filt Rate 56; Glucose 86 mg/dL (70-99); NT Pro B Type Natriuretic Pept 3822 pg/mL (0-125); Osmolality Calculated 285 mOsm/kg (285-295); Potassium 3.9 mmol/L (3.5-5.1); Sodium 138 mmol/L (136-145); Total Protein 7.1 g/dL (6.4-8.2)
== END 2021-11-15 14:06 | disposition home or self-care (01) ==
LOC: CHSLAB 14:09
PROVIDERS: PCP Internal Medicine; Visit Provider Internal Medicine
DX: J11.1 Influenza due to unidentified influenza virus with other respiratory manifestations (principal); I48.91 Unspecified atrial fibrillation; R06.02 Shortness of breath
CPT/HCPCS: 36415; 71046; 80053; 83880; 85025

== ENCOUNTER 2021-12-03 14:14 | Outpatient (CLI) | payer MEDICARE, SELFPAY ==
--- NOTE | 2021-12-03 15:14 | ECHO_ITS ---
Patient Info Name: Angy Sarmiento Age: 70 years : 1950 Gender: Female Ht: 61 in Wt: 114 lbs BSA: 1.50 m2 HR: 85 bpm BP: 135 / 76 mmHg Technical Quality: Good Exam Date: 12/03/2021 2:15 PM Exam Location: [facility] Patient Status: Outpatient Admit Date: 12/03/2021 Staff Ordering Physician: Dean Payton MD Movie Critic: [facility] Attending Provider: Dean Payton MD Referring Physician: Fito GERMAN; Exam Type: CA echo doppler color flow Study Info Indications R06.02 - Shortness of breath Complete two-dimensional, color flow and Doppler transthoracic echocardiogram is performed. Strain analysis performed. Summary 1. Complete two-dimensional, color flow and Doppler transthoracic echocardiogram is performed. 2. Left ventricular chamber dimension is moderately enlarged. 3. Left ventricular systolic function is severely reduced, estimated at 30-35%. 4. The left ventricular diastolic function is abnormal. 5. E/e' 11 is mildly elevated. 6. Global longitudinal strain is abnormal at -9.6%. 7. Right ventricular chamber dimension is mildly enlarged. 8. Right ventricular systolic function is mildly reduced and with abnormal TAPSE 1.6 cm. 9. Left atrial chamber dimension is severely enlarged. 10. Right atrial chamber dimension is severely enlarged. 11. There is moderate aortic valve sclerosis. 12. The mitral valve has moderately calcified annulus. 13. There is moderate to severe mitral valve regurgitation. MV RF 18%, ERO 0.1 cm2, RV 15 ml. 14. There is moderate tricuspid valve regurgitation. 15. Mild pulmonary hypertension, estimated pulmonary arterial systolic pressure is 39 mmHg. Left Ventricle E/e' 11 is mildly elevated. Global longitudinal strain is abnormal at -9.6%. Left ventricular chamber dimension is moderately enlarged. Left ventricular systolic function is severely reduced, estimated at 30-35%. The left ventricular diastolic function is abnormal. Right Ventricle Right ventricular systolic function is mildly reduced and with abnormal TAPSE 1.6 cm. Right ventricular chamber dimension is mildly enlarged. Left Atria Left atrial chamber dimension is severely enlarged. Right Atria Right atrial chamber dimension is severely enlarged. Aortic Valve The aortic valve is trileaflet. There is moderate aortic valve sclerosis. There is no aortic valve stenosis. There is mild aortic valve regurgitation. Pulmonic Valve There is no pulmonic regurgitation. Mitral Valve The mitral valve has moderately calcified annulus. There is moderate to severe mitral valve regurgitation. MV RF 18%, ERO 0.1 cm2, RV 15 ml. There is no mitral valve stenosis. Tricuspid Valve There is moderate tricuspid valve regurgitation. Mild pulmonary hypertension, estimated pulmonary arterial systolic pressure is 39 mmHg. Pericardium/Pleural There is no pericardial effusion. Inferior Vena Cava Normal inferior vena cava with >50% collapse upon inspiration consistent with normal right atrial pressure, 5 mmHg. Aorta The aortic root size at the sinus of Valsalva is normal. Left Ventricular Outflow Tract Name Value Normal LVOT 2D LVOT Diameter 2.0 cm LVOT Doppler -----
== END 2021-12-03 14:15 | disposition home or self-care (01) ==
LOC: CHSIMG 14:16
PROVIDERS: PCP Internal Medicine; Visit Provider Internal Medicine
DX: R06.02 Shortness of breath (principal); I50.9 Heart failure, unspecified
CPT/HCPCS: 93306

== ENCOUNTER 2022-01-19 14:11 | Outpatient (CLI) | payer MEDICARE, SELFPAY ==
--- NOTE | 2022-01-19 14:29 | ECG_ITS ---
Measurements Intervals Mize Rate: 93 P: NE: 0 QRS: -19 QRSD: 80 T: -78 QT: 341 QTc: 426 Interpretive Statements ATRIAL FIBRILLATION NONSPECIFIC ST & T-WAVE ABNORMALITY ABNORMAL RHYTHM ECG NO PREVIOUS ECG AVAILABLE FOR COMPARISON Electronically Signed On 01-19-2022 18:52:57 CDT by Yoanna Duenas M.D.
== END 2022-01-19 14:12 | disposition home or self-care (01) ==
LOC: CHSLAB 14:15 → CHSCARD 14:15
PROVIDERS: PCP Internal Medicine
DX: I48.91 Unspecified atrial fibrillation (principal); R00.0 Tachycardia, unspecified
CPT/HCPCS: 93005

== ENCOUNTER 2022-06-21 13:20 | Outpatient (CLI) | payer MEDICARE, SELFPAY ==
--- NOTE | ~2022-06-21 | DEXA_ITS ---
Bone Density Report Name: CIERRA JACKSON Age: 71 Sex: Female Ethnicity: White Date of : 1950 Indication: postmenopausal; screening for osteoporosis; height loss; prior fracture; hysterectomy; Referring Provider: Dean Payton Study: Bone densitometry was performed. Exam Date: June 21, 2022 Accession number: [id number] Bone Density: Region BMD T-score Z-score Classification AP Spine(L1-L4) 0.968 -0.7 1.6 Normal Femoral Neck (Left) 0.649 -1.8 0.2 Osteopenia Total Hip (Left) 0.769 -1.4 0.3 Osteopenia Femoral Neck (Right) 0.676 -1.6 0.4 Osteopenia Total Hip (Right) 0.737 -1.7 0.0 Osteopenia Femoral Neck Mean 0.663 -1.7 0.3 Osteopenia Total Hip Mean 0.753 -1.5 0.1 Osteopenia World Health Organization criteria for BMD impression classify patients as: Normal (T-score at or above -1.0), Osteopenia (T-score between -1.0 and -2.5), or Osteoporosis (T-score at or below -2.5). 10-year Fracture Risk: FRAX not reported because: Treated for osteoporosis Clinical Information Provided by Patient: Has had a low trauma fracture Smokes Is being treated for osteoporosis Has used the following medications: Vitamin D Has the following medical conditions: Hysterectomy Patient maximum height was 62 Menopause Age: 40 No regular weight bearing exercise Does not regularly consume dairy products Drinks caffeinated beverages Onset of menses at age 12 Number of children 2 Impression: The patient has low bone mass, based on the Left Femoral Neck T-score. The patient has risk factors, including: smoking, previous fracture. Discussion: It is important to ask patients whether they are taking their medications and to encourage continued and appropriate compliance with their osteoporosis therapies to reduce fracture risk. It is also important to review their risk factors and encourage appropriate calcium and vitamin D intakes, exercise, fall prevention and other lifestyle measures. Follow-Up: Consider a repeat BMD and Vertebral Fracture Assessment (VFA) exam in 2 years or sooner if medically necessary, to reassess this patient's status. Reported by: Dr. Andrea Coello on 06/22/2022 7:52:00 AM. Reviewed, dictated and finalized at location ADandre TONG
--- NOTE | ~2022-06-21 | CT_ITS ---
EXAMINATION:CT lung screening DATE: 06/21/2022 13:37 INDICATION: Personal history of tobacco dependence. Current smoker with 55 pack year history. TECHNIQUE: Computed tomography (CT) of the chest was performed without intravenous contrast. Automate d exposure control and iterative reconstruction technique were employed. The dose-length product (DLP ) was 54.93 mGy-cm. COMPARISON: Chest CT 06/16/2021 FINDINGS: There is stable scarring at the lung apices. There is severe emphysema. There is a stable 8 mm nodule in right upper lobe. There is a stable 4 mm nodule in left upper lobe. No pleural effusion . Cardiomegaly is noted. There are coronary artery calcifications. There are calcifications aortic va lve. No pericardial effusion. There is a 10 mm cyst in the liver. There is moderate thoracic spondylo sis and severe cervical spondylosis. There is an old healed fracture of the sternum. IMPRESSION: 1. Lung-RADS category 2: Benign appearance or behavior. Continue annual screening with noncontrast lo w-dose chest CT in 12 months. Reviewed, dictated and finalized at location A. INSULATION INSTALLER IMPRESSION: 1. Lung-RADS category 2: Benign appearance or behavior. Continue annual screeni ng with noncontrast low-dose chest CT in 12 months.
--- NOTE | ~2022-06-21 | MM_ITS ---
EXAMINATION: MM screening tyrese BI w travis HISTORY: Screening mammogram TECHNIQUE: Craniocaudal and mediolateral oblique 3-D tomosynthesis images were obtained and synthetic 2-D images were generated. CAD analysis was submitted and interpreted. COMPARISON: 03/19/2019, 12/28/2016 bilateral screening mammogram examinations BREAST PARENCHYMAL COMPOSITION: The breasts are heterogeneously dense, which may obscure small masses . FINDINGS: Scattered bilateral benign calcifications. There is no evidence of suspicious mass, calcifi cation, or architectural distortion to suggest malignancy in either breast. There has been no suspici ous interval change. IMPRESSION: 1. No mammographic evidence of malignancy. 2. Recommend routine screening mammography in one year. BI-RADS Category 1: Negative Reviewed, dictated and finalized at location A. PS CONSULTANT
== END 2022-06-21 13:21 | disposition home or self-care (01) ==
LOC: CHSIMG 13:21
PROVIDERS: PCP Internal Medicine; Visit Provider Internal Medicine
DX: Z12.2 Encounter for screening for malignant neoplasm of respiratory organs (principal); Z87.891 Personal history of nicotine dependence; Z78.0 Asymptomatic menopausal state; Z12.31 Encounter for screening mammogram for malignant neoplasm of breast; M85.89 Other specified disorders of bone density and structure, multiple sites
CPT/HCPCS: 71271; 77063; 77067; 77080

== ENCOUNTER 2024-06-13 13:24 | Outpatient (CLI) | payer MEDICARE, SELFPAY ==
--- NOTE | ~2024-06-13 | XR_ITS ---
CHEST RADIOGRAPH, PA AND LATERAL CLINICAL HISTORY: cough, URI,SOB WITH COUGHING . COMPARISON: 11/15/2021 TECHNIQUE: PA and lateral views of the chest. FINDINGS The cardiomediastinal silhouette is unremarkable. The lungs are clear. Visualized osseous structures and soft tissues are unremarkable. IMPRESSION: No focal infiltrate or effusion. Reviewed, dictated and finalized at location A. LIER QUALITY MANAGER
[2024-06-13 13:47] LABS: Basophils Absolute Auto 0.04 K/mm3 (0.00-0.10); Basophils Percent Auto 0.4 % (0.0-1.0); Eosinophils Absolute Auto 0.08 K/mm3 (0.02-0.50); Eosinophils Percent Auto 0.9 % (1.0-6.0); Hematocrit 41.2 % (35.0-42.0); Hemoglobin 13.6 g/dL (11.7-13.8); Immature Granulocyte Absolute 0.05 K/mm3 (0.00-0.00); Immature Granulocyte Percent A 0.5 % (0.0-0.0); Lymphocytes Absolute Auto 1.57 K/mm3 (1.10-4.50); Mean Corpuscular Hemoglobin 31.6 pg (27.0-31.0); Mean Corpuscular Volume 95.8 fL (78.0-102.0); Monocytes Absolute Auto 0.84 K/mm3 (0.10-0.90); Monocytes Percent Auto 9.1 % (2.0-11.0); Neutrophils Absolute Auto 6.68 K/mm3 (1.70-7.20); Neutrophils Percent Auto 72.1 % (50.0-70.0); Platelet Count Result 259 K/mm3 (150-420); Red Cell Distribution Width 12.3 % (11.6-14.4); White Blood Count 9.3 K/mm3 (4.8-10.8)
[2024-06-13 14:12] LABS: Strep Group A RT-PCR NOT DETECTED (Negative)
[2024-06-13 14:50] LABS: SARS-CoV-2 RNA PCR Negative (Negative)
[2024-06-13 14:55] LABS: Influenza A QL RT-PCR Negative (Negative); Influenza B QL RT-PCR Negative (Negative); RSV RNA, RT-PCR Negative (Negative)
== END 2024-06-13 13:25 | disposition home or self-care (01) ==
PROVIDERS: PCP Internal Medicine; Visit Provider Internal Medicine
DX: R05.9 Cough, unspecified (principal); J06.9 Acute upper respiratory infection, unspecified
CPT/HCPCS: 36415; 71046; 85025; 87637; 87651

== ENCOUNTER 2024-08-01 13:28 | Outpatient (CLI) | payer MEDICARE, SELFPAY ==
--- NOTE | ~2024-08-01 | CT_ITS ---
CT Scan of the Chest without Contrast: Clinical Indication: Lung cancer screening, nicotine dependence Technique: Contiguous sections were acquired throughout the chest without intravenous contrast. Dose reduction technique was used on this scan by utilizing automated exposure control and iterative recon struction technique. The dose-length product (DLP) was 72.10 mGy-cm. COMPARISON: 06/21/2022 Findings: There is no evidence of any significant mediastinal, hilar or axillary lymphadenopathy. The mediastin al soft tissues appear normal. There is no evidence of pleural or pericardial effusion. Stable 8 mm peripheral right upper lobe nodule (axial image 32). Stable minimal biapical scarring. Ad vanced emphysema present. Images through the upper abdomen reveal no abnormalities. Impression: Lung RADS 2: Benign appearance. 12 month follow-up screening CT advised. Reviewed, dictated and finalized at [facility]. ORDER SCHEDULER Impression: Lung RADS 2: Benign appearance. 12 month follow-up screening CT advised.
--- NOTE | ~2024-08-01 | DEXA_ITS ---
Bone Density Report Name: CIERRA JACKSON Age: 73 Sex: Female Ethnicity: White Date of : 1950 Indication: osteopenia; height loss; prior fracture; hysterectomy; Referring Provider: Dean Payton Study: Bone densitometry was performed. Exam Date: August 01, 2024 Accession number: [id number] Bone Density: Region BMD T-score Z-score Classification AP Spine(L1-L4) 0.961 -0.8 1.7 Normal Femoral Neck (Left) 0.598 -2.3 -0.1 Osteopenia Total Hip (Left) 0.725 -1.8 0.0 Osteopenia Femoral Neck (Right) 0.728 -1.1 1.0 Osteopenia Total Hip (Right) 0.740 -1.7 0.2 Osteopenia Femoral Neck Mean 0.663 -1.7 0.4 Osteopenia Total Hip Mean 0.732 -1.7 0.1 Osteopenia World Health Organization criteria for BMD impression classify patients as: Normal (T-score at or above -1.0), Osteopenia (T-score between -1.0 and -2.5), or Osteoporosis (T-score at or below -2.5). 10-year Fracture Risk(1): Major Osteoporotic Fracture 23% Hip Fracture 9.5% Reported Risk Factors: [place] (), Neck BMD=0.598, BMI=23.4, previous fracture, smoking (1) FRAX(R) Version 3.08. Fracture probability calculated for an untreated patient. Fracture probability may be lower if the patient has received treatment. Previous Exams: Region Exam Age BMD T-score BMD Change BMD Change Date g/cm2 vs Baseline vs Previous AP Spine (L1-L4) 08/01/2024 73 0.961 -0.8 -0.006 (-0.7%) -0.006 (-0.7%) 06/21/2022 71 0.968 -0.7 Total Hip(Left) 08/01/2024 73 0.725 -1.8 -0.044 (-5.7%) -0.044 (-5.7%) 06/21/2022 71 0.769 -1.4 Total Hip(Right) 08/01/2024 73 0.740 -1.7 0.003 (0.4%)# 0.003 (0.4%)# 06/21/2022 71 0.737 -1.7 *Denotes significance at 95% confidence level, LSC for AP Spine = 0.022 g/cm2, LSC for Total Hip = 0.027 g/cm2 # Denotes dissimilar scan types or analysis methods Clinical Information Provided by Patient: Has had a low trauma fracture Smokes Has used the following medications: Vitamin D, Calcium Has the following medical conditions: Hysterectomy Patient maximum height was 62 Menopause Age: 40 No regular weight bearing exercise Does not regularly consume dairy products Drinks caffeinated beverages Onset of menses at age 12 Number of children 2 Impression: The patient has low bone mass, based on the Left Femoral Neck T-score. The patient has risk factors, including: smoking, previous fracture. No significant bone loss was observed. Discussion: BONE DENSITY IS LOW AT ONE OR MORE SKELETAL SITES. This patient's lowest T-score is low at one or more skeletal sites. It meets the World Health Organization's (WHO) criteria for ?low bone mass? (T-score between -1.0 and -2.5). The patient's 10-year risk of fracture as calculated by FRAX is less than the threshold where pharmacological therapy is recommended by the National Osteoporosis Foundation (NOF). However, all treatment decisions require clinical judgment and consideration of individual patient factors, including patient preferences, comorbidities, previous drug use, risk factors not captured in the FRAX model (e.g., frailty, falls, vitamin D deficiency, increased bone turnover, interval significant decline in bone density) and possible under or overestimation of fracture risk by FRAX. The patient should follow a healthful lifestyle (good nutrition with adequate calcium and vitamin D, and appropriate weight-bearing exercise). Follow-Up: Consider repeating this study in 2 to 3 years to reassess this patient's status, or sooner if there is some new clinical indication. Reported by: SHAVON on 08/01/2024 1:55:00 PM. Reviewed, dictated and finalized at location ADandre TONG
--- NOTE | ~2024-08-01 | MM_ITS ---
EXAMINATION: MM screening tyrese BI w travis HISTORY: Screening TECHNIQUE: Craniocaudal and mediolateral oblique 3-D tomosynthesis images were obtained and synthetic 2-D images were generated. CAD analysis was submitted and interpreted. COMPARISON: Comparison to multiple prior studies sequentially, with oldest reviewed study dated 12/28 2. BREAST PARENCHYMAL COMPOSITION: Not dense: There are scattered areas of fibroglandular density. FINDINGS: There is no evidence of suspicious mass, calcification, or architectural distortion to sugg est malignancy in either breast. There has been no suspicious interval change. IMPRESSION: 1. No mammographic evidence of malignancy. 2. Recommend routine screening mammography in one year. BI-RADS Category 1: Negative Reviewed, dictated and finalized at location B. ATER OPERATOR
--- OUTSIDE RECORDS SUMMARY | 2024-08-01 13:40 | XMS_ITS | Referral Summary ---
Author Organization [facility] al Address [address] [place] [address] Care Team Providers Care Title Insurance Examiner Name Role Phone Dean Payton MD Primary Care Provider + [phone] Allergies No known active allergies Medications gabapentin (NEURONTIN) 300 mg capsule Take 1 capsule (300 mg total) by mouth 3 (three) times a day. 90 capsule 11 8 Active citalopram (CeleXA) 40 mg tablet Take 1 tablet (40 mg total) by mouth daily 1 9 Active ELIQUIS 5 mg tablet Take 1 tablet (5 mg total) by mouth 2 (two) times a day Held does for procedure. LD 04/04/21 2 9 Active atorvastatin (LIPITOR) 40 mg tablet Take 1 tablet (40 mg total) by mouth daily 0 9 Active ALPRAZolam (XANAX) 0.25 mg tablet TAKE 1 TABLET PRN Active aspirin 81 mg enteric coated tablet Take 1 tablet (81 mg total) by mouth daily Active pantoprazole DR (PROTONIX) 40 mg EC tablet 1 Active ergocalciferol (VITAMIN D) 50,000 unit capsule TAKE 1 CAPSULE BY MOUTH ONE TIME PER WEEK 1 Active methocarbamoL (ROBAXIN) 500 mg tablet Take 1 tablet (500 mg total) by mouth 3 (three) times a day as needed for muscle spasms 60 tablet 2 1 Active baclofen (LIORESAL) 10 mg tablet Take by mouth 3 (three) times a day as needed 1 Active Wixela Inhub 500-50 mcg/dose diskus inhaler 2 Active furosemide (LASIX) 20 mg tablet Take 1 tablet (20 mg total) by mouth daily 2 Active albuterol HFA (PROVENTIL HFA,VENTOLIN HFA,PROAIR HFA) 90 mcg/actuation inhaler INHALE 2 PUFFS BY MOUTH EVERY 6 HOURS 2 Active potassium chloride ER 10 mEq CR tablet Take 1 tablet/capsule (10 mEq total) by mouth 2 Active busPIRone (BUSPAR) 10 mg tablet TAKE 1 TABLET BY MOUTH 2 TIMES PER DAY. MAY TAKE AN EXTRA DOSE NEEDED. MAX 40MG IN 24 HOURS 3 Active nystatin 100,000 unit/mL suspension TAKE 5 MILLILITERS (500,000 UNIT) BY ORAL ROUTE 4 TIMES PER DAY 3 Active losartan (COZAAR) 50 mg tablet TAKE 1 TABLET BY MOUTH EVERY DAY 90 tablet 3 3 Active metoprolol XL (TOPROL-XL) 50 mg extended release tablet TAKE 1 TABLET BY MOUTH EVERY DAY 90 tablet 4 Active Active Problems Problem Noted Date Diagnosed Date Spondylosis of cervical tawanna on without myelopathy or radiculopathy 07/12/2021 Cervical spinal stenosis 07/12/2021 Cervical radicular pain 03/15/2021 DDD (degenerative disc disease), cervical 2020 Neck pain 12/21/2020 Chronic bilateral low back pain with bilateral s ciatica 12/21/2020 Cervical disc disorder with myelopathy of mid-cervical region 12/21/2020 Atrial fibrillation (CMS/HCC) 12/21/2018 Atherosclerosis of elim ira ar teries of extremities with intermittent claudication, bilateral legs 09/17/2018 Sciatica 10/06/2017 Peripheral vascular disease 09/12/2017 Pain of right lower extremity 09/06/2017 Intermittent claudication 08/18/2017 Cardiac arrhythmia 02/15/2017 Mixed anxiety depressive disorder 02/15/2017 Cervical syndrome 02/15/2017 Constipation 02/15/2017 Chest pain 01/12/2017 Amnesia 08/11/2016 Tobacco use 08/11/2015 Muscle spasms of neck 03/12/2015 Arthralgia of shoulder 12/30/2014 Cervical radiculopathy 12/05/2014 Arthritis 11/13/2014 Chronic pain 11/13/2014 Multiple pulmonary nodules 08/05/2014 Altered bowel function 08/22/2013 Irritable bowel syndrome 08/22/2013 Fecal incontinence 08/22/2013 Hyperlipidemia 07/25/2013 Smokes tobacco daily 07/25/2013 Temporary cerebral vascular dysfunction 10/19/19 13 Paroxysmal atrial fibrillation (CMS/HCC) 011 Immunizations Immunization Administration Dates Next Due Influenza, Quadrivalent, Spl it, Preservative Free, Intramuscular 06/03/2022,03/16/2020,04/02/2019,02/27,07/05/2017 Influenza, Trivalent, High D ose, Split, Preservative Free, Intramuscular 06/18/2012 Influenza, Trivalent, IM (MDV) 05/29/2014,2012 Influenza, Trivalent, Preser vative Free, Intramuscular 03/02/2015,03/12/2014 Pfizer SARS-CoV-2 Monovalent Vaccination (12+ Yrs) CAAL-READY TO USE 07/12/2021 Pfizer Sars-Cov-2 Bivalent V accination (12+ YRS) 07/01/2022 Pneumococcal Conjugate PCV 13 03/02/2015 Pneumococcal Polysaccharide PPV23 06/11/2021,01/2013 Tdap 04/19/2016,04/30/2009 ZOSTER LIVE 10/17/2012 Social History Tobacco Use Types Packs/Day Years Used Date Smoking Tobacco: Every Day Cigarettes 0.5 58.1 Started: 1968 Smokeless Tobacco: Current Tobacco Cessation:Ready to Q uit: Not Asked; Counseling Given: Not Answered Comments:info given Alcohol Use Standard Drinks/Week Comments Not Currently 0 (1 standard drink = 0.6 oz pur e alcohol) AUDIT-C Answer Date Recorded Q1: How often do you have a drink containing alc ohol? Never 01/19/2023 Average Number of Drinks Not on file 023 Q3: How often do you have si x or more drinks on one occasion? Never 01/19/2023 Comments No Sex and Gender Information Value Date Recorded Sex Assigned at Not on file Legal Sex Female 8:42 PM DIRECTOR OF HUMAN RESOURCES Gender Identity Not on file Sexual Orientation Not on file Last Filed Vital Signs Vital Sign Reading Time Taken Comments Blood Pressure 136/61 01/22/2024 10:32 AM CDT Pulse 62 01/22/2024 10:32 AM CDT Temperature 36.3 C (97.3 F) 07/28/2021 7:44 AM DIRECTOR OF HUMAN RESOURCES Respiratory Rate 12 07/28/2021 8:29 AM DIRECTOR OF HUMAN RESOURCES Oxygen Saturation 98% 01/22/2024 10:32 AM CDT Inhaled Oxygen Concentration - - Weight 50.3 kg (111 lb) 01/22/2024 10:32 AM CDT Height 154.9 cm (5' 1 ) 01/22/2024 10:32 AM CDT Body Mass Index 20.97 01/22/2024 10:32 AM CDT Plan of Treatment Not on file Goals Goal Patient Goal Type Associated Problems Recent Progress Patient-Stated? Author CCM Chronic Pain Care Plan Chronic Care Management Improving( 7:48 AM DIRECTOR OF HUMAN RESOURCES) Estrella Liang, RN Note: Problem: Chronic Pain Goals: 1. Minimize further functional decline 2. Maximize quality of life 3. Control pain Strategies: - Activity/exercise program recommendation - Conservative stepwise pain medicine strategy with multi-disciplinary approach - Recommend healthy lifestyle strategies and compensatory methods as needed Medical Devices Implanted Type Area Chicken And Fish Cleaner Device Identifier Shelf Expiration Date Model / Serial / Lot Meng And Pins Femur Insurance MEDICARE SOLUTIONS MEDICARE SOLUTIONS MEDICARE SOLUTIONS Care Teams Title Insurance Examiner Relationship Specialty Start Date End Date Dean Payton MD [address] [place] [address] PCP - General 01/23/17
--- OUTSIDE RECORDS SUMMARY | 2024-08-01 13:40 | XMS_ITS | Encounter Summary ---
Author Organization [facility] [place] [facility] Address [address] [place] [address] Phone Care Team Providers Care Film Sound Coordinator Name Role Phone Dean Payton MD Primary Care Provider + [phone] Encounter Details Date Type Department Care Team (Latest Contact Info) Description 09/12/2017 Orders Only [facility] CONVERSION Scanning, Provider Social History Tobacco Use Types Packs/Day Years Used Date Smoking Tobacco: Every Day Comments Unknown Sex and Gender Information Value Date Recorded Sex Assigned at Not on file Legal Sex Female 8:42 PM ORTHO RN Gender Identity Not on file Sexual Orientation Not on file documented as of this encounter Plan of Treatment Not on file documented as of this encounter Procedures Procedure Name Priority Date/Time Associated Diagnosis Comments VASCULAR LABORATORY REPORT 09/12/2017 5:48 PM CDT documented in this encounter Results * VASCULAR LABORATORY REPORT (09/12/2017 5:48 PM CDT) Anatomical Region Laterality Modality Ultrasound us Provider Scanning CV VASCULAR PROCEDURES Final R esult documented in this encounter Visit Diagnoses Not on filedocumented in this encounter Care Teams Film Sound Coordinator Relationship Specialty Start Date End Date Dean Payton MD [address] [place] [address] PCP - General 01/23/17 documented as of this encounter
--- OUTSIDE RECORDS SUMMARY | 2024-08-01 13:40 | XMS_ITS | Clinical Summary ---
Author Organization [facility] al Address [address] [place] [address] Care Team Providers Care Field Account Manager Name Role Phone Dean Payton MD Primary Care Provider + [phone] Allergies No known active allergies Medications gabapentin [...] 12/21/2020 Atrial fibrillation (CMS/HCC) 12/21/2018 Atherosclerosis of [place] ar teries of extremities with intermittent claudication, [...] PPV23 06/11/2021,01/2013 Tdap 04/19/2016,04/30/2009 ZOSTER LIVE 10/17/2012 Surgical History Surgery Date Site/Laterality Comments HYSTERECTOMY Total Hysterectomy - (Added by TW Conv) NECK SURGERY Neck Surgery - benign gland tumor removal (Added by TW Conv) [place] DILATION & CURETTAGE DX&/ THER NONOBSTETRIC Dilation And Curettage - (Added by TW Conv) [place] DSTR NROLYTC AGNT PARVERT EB FCT SNGL CRVCL/THORA Nerve Ablation Paravertebral Facet Joint With Imaging Guidance Cervical - (Added by TW Conv) TUMOR REMOVAL left ear FEMORAL TRACTION PIN Medical History Medical History Date Comments Personal history of other me ntal and behavioral disorders History of depression - (Add ed by TW Conv) Personal history of other di seases of the circulatory system History of hypertension - (A dded by TW Conv) Alcohol dependence in remiss ion (CMS/HCC) (HCC) Alcoholism in recovery - (Ad ded by TW Conv) Anxiety Depression Headache Neck pain Atrial fibrillation (CMS/HCC) (HCC) Cervical disc disease Gastric ulcer Family History Medical History Relation Name Comments Heart disease Father Heart disease Maternal Grandmother Cancer Mother Family history of malignant neoplasm - (Added by TW Conv) Heart disease Paternal Grandmother Heart disease Sister Relation Name Status Comments Father Maternal Grandmother Mother Paternal Grandmother Sister Social History Tobacco Use Types Packs/Day Years [...] on file Legal Sex Female 8:42 PM PUNCHBOARD STUFFER Gender Identity Not on file Sexual Orientation Not on file Obstetrics History Last Filed Vital Signs Vital Sign Reading Time Taken Comments Blood Pressure 136/61 01/22/2024 10:32 AM CDT Pulse 62 01/22/2024 10:32 AM CDT Temperature 36.3 C (97.3 F) 07/28/2021 7:44 AM PUNCHBOARD STUFFER Respiratory Rate 12 07/28/2021 8:29 AM PUNCHBOARD STUFFER Oxygen Saturation 98% 01/22/2024 10:32 AM CDT Inhaled Oxygen Concentration - - Weight 50.3 kg (111 lb) 01/22/2024 10:32 AM CDT Height 154.9 cm (5' 1 ) 01/22/2024 10:32 AM CDT Body Mass Index 20.97 01/22/2024 10:32 AM CDT Plan of Treatment Health Maintenance Due Date Last Done Comments Colon Cancer Screening-Colonoscopy 1950 Depression Screening 1950 Fall Risk Assessment 1950 Hepatitis C Screening 1950 Osteoporosis Screening-Bone Density Scan 1950 Hepatitis B Screening 1966 Lung Cancer Screening 1998 Zoster Vaccine (2 of 3) 12/12/2012 10/17/2012 Well Visit 65+ 2013 Covid-19 Vaccine (2023-2 5 season) 2024 07/01/2022, 07/12/2021, 08/30/2020, Additional history exists Influenza Vaccine (#1) 2024 2, 03/16/2020, 04/02/2019, Additional history exists DTaP/Tdap/Td Vaccine (3 - Td or Tdap) 04/19/2026 04/19/2016, 04/30/2009 Pneumococcal vaccine 65+ Completed 021, 03/02/2015, 10/17/2012 Goals Goal Patient Goal Type Associated Problems Recent Progress Patient-Stated? Author CCM Chronic Pain Care Plan Chronic Care Management Improving( 7:48 AM PUNCHBOARD STUFFER) Estrella Liang, RN Note: Problem: Chronic Pain Goals: 1. Minimize further functional decline 2. Maximize quality of life 3. Control pain Strategies: - Activity/exercise program recommendation - Conservative stepwise pain medicine strategy with multi-disciplinary approach - Recommend healthy lifestyle strategies and compensatory methods as needed Medical Devices Implanted Type Area Cashier Gambling Device Identifier Shelf Expiration Date Model / Serial / Lot Meng And Pins Femur Insurance MEDICARE SOLUTIONS [facility] MEDICARE Address: [facility] [address] [place] [address] MEDICARE SOLUTIONS MEDICARE SOLUTIONS Care Teams Field Account Manager Relationship Specialty Start Date End Date Dean Payton MD [address] [place] [address] PCP - General 01/23/17
--- OUTSIDE RECORDS SUMMARY | 2024-08-01 13:40 | XMS_ITS | Clinical Summary ---
Author Organization [facility] Address Formerly [facility] [place] [address] Care Team Providers Care Assistant Production Editor Name Role Phone Unavailable Primary Care Provider Unavailabl e Social History Tobacco Use Types Packs/Day Years Used Date Smoking Tobacco: Never Assessed Comments Unknown Sex and Gender Information Value Date Recorded Sex Assigned at Not on file Legal Sex Female 7:18 PM CDT Gender Identity Not on file Sexual Orientation Not on file Plan of Treatment Health Maintenance Due Date Last Done Comments Colorectal Cancer Screening Colonoscopy (10 Years) 1950 Hepatitis C 1966 DTaP, Tdap and Td Vaccines ( 1 - Tdap) 12/14/1967 Zoster Vaccines (1 of 2) 1998 Dexa Scan (General) 2013 Pneumococcal Vaccine: 65+ Ye ars (1 of 1 - PCV) 2013 RSV Immunization or 60+ Years (1 - 1-dose 75+ series) 12/14/2023 COVID-19 Vaccine ( - 2023-2 5 season) 2024 Influenza Adult (#1) 2024 Meningococcal B Vaccine Aged Out No l onger eligible based on patient's age to complete this topic Meningococcal Vaccine Aged Out No dora ant eligible based on patient's age to complete this topic RSV Immunizations Under 20 Months Aged Out No longer eligible based on patient's age to complete this topic
== END 2024-08-01 13:29 | disposition home or self-care (01) ==
LOC: CHSIMG 13:30
PROVIDERS: PCP Internal Medicine; Visit Provider Internal Medicine
DX: Z12.31 Encounter for screening mammogram for malignant neoplasm of breast (principal); Z78.0 Asymptomatic menopausal state; Z12.2 Encounter for screening for malignant neoplasm of respiratory organs; Z87.891 Personal history of nicotine dependence; M85.89 Other specified disorders of bone density and structure, multiple sites
CPT/HCPCS: 71271; 77063; 77067; 77080

== ENCOUNTER 2024-10-01 14:22 | Outpatient (CLI) | payer MEDICARE, SELFPAY ==
--- NOTE | ~2024-10-01 | XR_ITS ---
Lumbosacral Spine: AP and lateral views Clinical History: Pain Findings: The normal lordotic curve is maintained. No fracture. There is 6 mm anterolisthesis of L4 o carl L5. There is moderate degenerative disc narrowing throughout the lumbar spine. There is moderate to advanced facet arthropathy throughout the lumbar spine. The sacroiliac joints are normally outline d. Impression: Moderate to advanced degenerative spondylosis. 6 mm anterolisthesis of L4 over L5. Reviewed, dictated and finalized at location M. Impression: Moderate to advanced degenerative spondylosis. 6 mm anterolisthesis of L4 over L5.
--- NOTE | ~2024-10-01 | XR_ITS ---
AP view of the pelvis Clinical history: Pain Findings: Questionable age-indeterminate fracture of the left superior pubic ramus. Osseous alignment is anatomic. There is moderate right hip joint degenerative change. Left hip joint intact. Soft tiss ues are unremarkable. Impression: Questionable age-indeterminate fracture of the left superior pubic ramus. Correlate for point tendern ess. Moderate right hip joint degenerative change. Reviewed, dictated and finalized at location . Impression: Questionable age-indeterminate fracture of the left superior pubic ramus. Corre late for point tenderness. Moderate right hip joint degenerative change.
--- OUTSIDE RECORDS SUMMARY | 2024-10-01 16:39 | XMS_ITS | Encounter Summary ---
Author Organization [facility] Address [address] [place] [address] Phone Care Team Providers Care Help Desk Intern Name Role Phone Dean Payton MD Primary Care Provider + [phone] Encounter Details Date Type Department Care Team (Latest Contact Info) Description 09/12/2017 Orders Only [facility] CONVERSION Scanning, Provider Social History Tobacco Use Types Packs/Day Years Used Date Smoking Tobacco: Every Day Comments Unknown Sex and Gender Information Value Date Recorded Sex Assigned at Not on file 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
--- OUTSIDE RECORDS SUMMARY | 2024-10-01 16:39 | XMS_ITS | Referral Summary ---
Author Organization 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 [place] teries of extremities with intermittent claudication, [...] vascular dysfunction 10/19/19 13 Paroxysmal atrial fibrillation 10/25/2010 Immunizations Immunization Administration Dates Next Due Influenza, [...] Date Smoking Tobacco: Every Day Cigarettes 0.5 58.3 Started: 1968 Smokeless Tobacco: Current Tobacco Cessation:Ready [...] on file Legal Sex Female 8:42 PM OXYACETYLENE WELDER Gender Identity Not on file Sexual Orientation Not on file Last Filed Vital Signs Vital Sign Reading Time Taken Comments Blood Pressure 136/61 01/22/2024 10:32 AM CDT Pulse 62 01/22/2024 10:32 AM CDT Temperature 36.3 C (97.3 F) 07/28/2021 7:44 AM OXYACETYLENE WELDER Respiratory Rate 12 07/28/2021 8:29 AM OXYACETYLENE WELDER Oxygen Saturation 98% 01/22/2024 10:32 AM CDT [...] Plan Chronic Care Management Improving( 7:48 AM OXYACETYLENE WELDER) Estrella Liang, RN Note: Problem: Chronic Pain Goals: 1. Minimize further functional decline 2. Maximize quality of life 3. Control pain Strategies: - Activity/exercise program recommendation - Conservative stepwise pain medicine strategy with multi-disciplinary approach - Recommend healthy lifestyle strategies and compensatory methods as needed Medical Devices Implanted Type Area Control Engineer Device Identifier Shelf Expiration Date Model / Serial / Lot Meng And Pins Femur Insurance [facility] [place] [address] [facility] MEDICARE ADVANTAGE [facility] MEDICARE ADVANTAGE Care Teams Sales Program Coordinator Relationship Specialty Start Date End Date Dean Payton MD [address] [place] [address] PCP - General 01/23/17
--- OUTSIDE RECORDS SUMMARY | 2024-10-01 16:39 | XMS_ITS | Clinical Summary ---
Author Organization [facility] Address [facility] [place] [address] Care Team Providers Care Director Of Property Management Name Role Phone Unavailable Primary Care Provider [...] Td Vaccines ( 1 - Tdap) 12/14/1967 Pneumococcal Vaccine: 50+ Ye ars (1 of 1 - PCV) 1998 Zoster Vaccines (1 of 2) 1998 Dexa Scan (General) 2013 RSV Immunization or 60+ Years (1 - 1-dose 75+ series) 12/14/2023 COVID-19 Vaccine ( - 2023-2 5 season) 2024 Meningococcal B Vaccine Aged Out No l onger eligible based on patient's age to complete this topic Meningococcal Vaccine Aged Out No dora ant eligible based on patient's age to complete this topic RSV Immunizations Under 20 Months Aged Out No longer eligible based on patient's age to complete this topic
--- OUTSIDE RECORDS SUMMARY | 2024-10-01 16:39 | XMS_ITS | Clinical Summary ---
Author Organization [facility] al Address [address] [place] [address] Care Team Providers Care Registration Coordinator Name Role Phone Dean Payton MD Primary Care Provider + [phone] Allergies No known active allergies Medications gabapentin [...] region 12/21/2020 Atrial fibrillation 12/21/2018 Atherosclerosis of [place] ar teries of extremities with intermittent claudication, [...] gland tumor removal (Added by TW Conv) [place] DILATION & CURETTAGE DX&/ THER NONOBSTETRIC Dilation And Curettage - (Added by TW Conv) [place] DSTR NROLYTC AGNT PARVERT EB FCT SNGL [...] dded by TW Conv) Alcohol dependence in remission (HCC) Alcoholism in recovery - (Added by TW Conv) Anxiety Depression Headache Neck pain Atrial fibrillation (HCC) Cervical disc disease Gastric ulcer Family [...] on file Legal Sex Female 8:42 PM 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 BEAD MOLDER Gender Identity Not on file Sexual Orientation Not on file Obstetrics History Last Filed Vital Signs Vital Sign Reading Time Taken Comments Blood Pressure 136/61 01/22/2024 10:32 AM CDT Pulse 62 01/22/2024 10:32 AM CDT Temperature 36.3 C (97.3 F) 07/28/2021 7:44 AM POLYSTYRENE BEAD MOLDER Respiratory Rate 12 07/28/2021 8:29 AM POLYSTYRENE BEAD MOLDER Oxygen Saturation 98% 01/22/2024 10:32 AM CDT [...] 07/12/2021, 08/30/2020, Additional history exists Influenza Vaccine (Season Ended) 2025 06/03/2022, 03/16/2020, 04/02/2019, Additional history exists DTaP/Tdap/Td Vaccine (3 - Td or Tdap) 04/19/2026 04/19/2016, 04/30/2009 Pneumococcal vaccine 65+ Completed 021, 03/02/2015, 10/17/2012 Goals Goal Patient Goal Type Associated Problems Recent Progress Patient-Stated? Author CCM Chronic Pain Care Plan Chronic Care Management Improving( 7:48 AM POLYSTYRENE BEAD MOLDER) Estrella Liang, RN Note: Problem: Chronic Pain Goals: 1. Minimize further functional decline 2. Maximize quality of life 3. Control pain Strategies: - Activity/exercise program recommendation - Conservative stepwise pain medicine strategy with multi-disciplinary approach - Recommend healthy lifestyle strategies and compensatory methods as needed Medical Devices Implanted Type Area Financial Manager Device Identifier Shelf Expiration Date Model / Serial / Lot Meng And Pins Femur Insurance [facility] [place] [address] [facility] MEDICARE ADVANTAGE [facility] MEDIC[facility] ADVANTAGE Care Teams Registration Coordinator Relationship Specialty Start Date End Date Dean Payton MD [address] [place] [address] PCP - General 01/23/17
== END 2024-10-01 14:23 | disposition home or self-care (01) ==
LOC: CHSIMG 14:24
PROVIDERS: PCP Internal Medicine; Visit Provider Internal Medicine
DX: M54.50 Low back pain, unspecified (principal); R10.30 Lower abdominal pain, unspecified; M43.06 Spondylolysis, lumbar region
CPT/HCPCS: 72100; 72170

== ENCOUNTER 2024-10-03 10:41 | Outpatient (CLI) | payer MEDICARE, SELFPAY ==
--- NOTE | ~2024-10-03 | CT_ITS ---
EXAMINATION: CT pelvis wo con DATE: 10/03/2024 10:59 INDICATION: Left-sided pelvic pain pain. Fracture of the pubic ramus post fall. TECHNIQUE: Computed tomography (CT) of the pelvis was performed without intravenous contrast. Sagitta l and coronal reconstructions were performed. Automated exposure control and iterative reconstruction technique were employed. The dose-length product was 124.86 mGy-cm. COMPARISON: Radiographs dated 10/01/2024 FINDINGS: Mildly comminuted minimally displaced fracture extending across the medial side of the superior pubic ramus extending into the pubic body. There is subtle cortical buckling along the inferior pubic sagar s suspicious for additional nondisplaced fracture. Mild stranding in the immediately adjacent soft ti ssues consistent with reactive edema or small amount of hemorrhage without a well-defined loculated h ematoma. No other fractures identified. Moderate severe osteoarthritis at the right hip. Moderate ost eoarthritis at the left sacroiliac joint and mild osteoarthritis at the right sacroiliac joint and le ft hip. 4 mm anterolisthesis L4 on L5 with moderate disc height loss at this level. Severe bilateral lower lumbar facet osteoarthritis. Calcified gallstone in the visualized fundus of the otherwise norm al-appearing gallbladder. Visualized bowels are unremarkable. Bladder is normal. The uterus is not id entified and has likely been surgically resected. Small fat-containing umbilical hernia. No free intr aperitoneal gas or fluid. No pathologically enlarged pelvic or inguinal lymphadenopathy. IMPRESSION: 1. Mildly comminuted mildly displaced fracture of the medial left superior pubic ramus and pubic body and nondisplaced fracture of the left inferior pubic ramus. Reviewed, dictated and finalized at location A. IMPRESSION: 1. Mildly comminuted mildly displaced fracture of the medial left superior pubi c ramus and pubic body and nondisplaced fracture of the left inferior pubic marco us.
--- OUTSIDE RECORDS SUMMARY | 2024-10-03 12:05 | XMS_ITS | Encounter Summary ---
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
--- OUTSIDE RECORDS SUMMARY | 2024-10-03 12:06 | XMS_ITS | Clinical Summary ---
Author Organization 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 Minimize further functional decline 2. Maximize quality of life 3. Control pain Strategies: - Activity/exercise program recommendation - Conservative stepwise pain medicine strategy with multi-disciplinary approach - Recommend healthy lifestyle strategies and compensatory methods as needed Medical Devices Implanted Type Area Rough Rice Tender Device Identifier Shelf Expiration Date Model / Serial / Lot M[employer] P[employer] Femur Insurance [facility] MEDICARE ADVANTAGE [facility] MEDICARE Address: [facility] [address] [place] [address] [facility] MEDICARE ADVANTAGE [facility] MEDICARE Address: [address] [address] [place] [address] [facility] MEDICARE ADVANTAGE [facility] MEDICARE Address: [address] [address] [place] [address] Care Teams Heavy Mobile Equipment Repairer Relationship Specialty Start Date End Date Dean Payton MD [address] [place] [address] PCP - General 01/23/17
--- OUTSIDE RECORDS SUMMARY | 2024-10-03 12:06 | XMS_ITS | Clinical Summary ---
Author Organization [facility] Address [facility] [place] [address] Care Team Providers Care Fisheries Inspector Name Role Phone Unavailable Primary Care Provider [...]
--- OUTSIDE RECORDS SUMMARY | 2024-10-03 12:06 | XMS_ITS | Referral Summary ---
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 Minimize further functional decline 2. Maximize quality of life 3. Control pain Strategies: - Activity/exercise program recommendation - Conservative stepwise pain medicine strategy with multi-disciplinary approach - Recommend healthy lifestyle strategies and compensatory methods as needed Medical Devices Implanted Type Area Route Service Manager Device Identifier Shelf Expiration Date Model / Serial / Lot M[employer] P[employer] Femur Insurance [facility] MEDICARE ADVANTAGE [facility] MEDIC[facility] ADV[employer]AGE [facility] MED[employer]V[employer]AGE Care Teams Keno Writer Relationship Specialty Start Date End Date Dean Payton MD [address] [place] [address] PCP - General 01/23/17
== END 2024-10-03 10:42 | disposition home or self-care (01) ==
LOC: CHSIMG 10:43
PROVIDERS: PCP Internal Medicine; Visit Provider Internal Medicine
DX: S32.592A Other specified fracture of left pubis, initial encounter for closed fracture (principal); R10.2 Pelvic and perineal pain
CPT/HCPCS: 72192